=== PATIENT | female | born 1990 | race Caucasian/White ===

== ENCOUNTER 2022-11-08 09:23 | Outpatient (CLI) | payer OTHER, SELFPAY | END 2022-11-08 09:24 | disposition home or self-care (01) | PROVIDERS: Visit Provider Advanced Practice Midwife | DX: E06.3 Autoimmune thyroiditis (principal) | CPT/HCPCS: 84439; 84443 ==

== ENCOUNTER 2022-12-10 08:06 | Outpatient (CLI) | payer OTHER, SELFPAY ==
--- NOTE | 2022-12-10 08:15 | CRLHL7_ITS ---
For Patients: As a result of the Century Cures Act, medical imaging exams and procedure reports are released immediately into your electronic medical record. You may view this report before your referring provider. If you have questions, please contact your health care provider. INDICATION: Evaluate anatomy. COMPARISON: none TECHNIQUE: Real time gan scale imaging of the fetus was performed as well as color Doppler analysis of the umbilical vessels. FINDINGS: Sonographic imaging demonstrates a single living intrauterine gestation. Fetus demonstrates a regular cardiac rate of 139 beats per minute. Fetus has a vertex position. The placenta lies posterior. On transvaginal imaging, the placental tip extends to the internal cervical os. Amniotic fluid volume appears normal. Single deepest vertical pocket: 5.0 cm. The cervix is closed and measures 3.7 cm in length. The composite ultrasound gestational age is calculated at 19 weeks 3 days with an estimated sonographic due date of 05/03/2023. The estimated weight is 276 grams which lies at the 36th %. The following biometric measurements were obtained: Biparietal diameter: 4.5 cm/19 weeks 4 days 64th% Head circumference: 16.0 cm/18 weeks 6 days 23rd% Abdominal circumference: 14.7 cm/20 weeks 0 days 69th% Femur length: 2.7 cm/18 weeks 1 day 10th% The HC/AC ratio measures: 1.09 range (1.08-1.26) On anatomic survey, there is a normal appearance of the cerebral ventricles, cavum septi pellucidi, cisterna magna and cerebellum. The nose, lips, and facial profile appear normal. The cervical, thoracic and lumbar spine are well visualized and appear normal. There is a normal four-chamber heart view and the left and right ventricular outflow tracts appear normal. The diaphragm and stomach appear normal. The kidneys and bladder also appear normal. Trace bilateral pelviectasis noted measuring 2 millimeters considered normal. There is a normal three-vessel cord. Heterogeneous echotexture noted within the placenta adjacent to the cord insertion. The four extremities appear normal. IMPRESSION: Concordant of clinical and sonographic dating. No intrinsic abnormalities noted on anatomic survey. The edge of the posterior placenta extends to the internal cervical os and should be followed up in the 3rd trimester. Central placental cord insertion. Heterogeneous echotexture within the placenta adjacent to the cord of doubtful significance. This could be followed in the 3rd trimester. Dictated by Barrington Joyce MD @ 12/10/2022 9:31:58 AM (Electronically Signed)
== END 2022-12-10 08:07 | disposition home or self-care (01) ==
LOC: US 08:07
PROVIDERS: Visit Provider Advanced Practice Midwife
DX: Z34.92 Encounter for supervision of normal pregnancy, unspecified, second trimester (principal); E06.3 Autoimmune thyroiditis; Z3A.19 19 weeks gestation of pregnancy
CPT/HCPCS: 76805; 76817; 84439; 84443

== ENCOUNTER 2022-12-10 09:34 | Outpatient (CLI) | payer OTHER, SELFPAY | END 2022-12-10 09:35 | disposition home or self-care (01) | PROVIDERS: Visit Provider Advanced Practice Midwife | DX: E06.3 Autoimmune thyroiditis (principal) | CPT/HCPCS: 84439; 84443; 84481; 86376; 86800 ==

== ENCOUNTER 2023-02-06 09:33 | Outpatient (CLI) | payer OTHER, SELFPAY | END 2023-02-06 09:34 | disposition home or self-care (01) | PROVIDERS: Visit Provider Advanced Practice Midwife | DX: E06.3 Autoimmune thyroiditis (principal); O44.40 Low lying placenta NOS or without hemorrhage, unspecified trimester | CPT/HCPCS: 84439; 84443; 84481; 86592 ==

== ENCOUNTER 2023-03-13 08:10 | Outpatient (CLI) | payer OTHER, SELFPAY ==
--- NOTE | 2023-03-13 08:15 | CRLHL7_ITS ---
For Patients: As a result of the Century Cures Act, medical imaging exams and procedure reports are released immediately into your electronic medical record. You may view this report before your referring provider. If you have questions, please contact your health care provider. INDICATION: CHECK LOW LYING PLACENTA AND CORD INSERTION COMPARISON: 12/10/2022 TECHNIQUE: Real time gan scale imaging of the fetus was performed. FINDINGS: Sonographic imaging demonstrates a single living intrauterine gestation. Fetus demonstrates a regular cardiac rate of 134 beats per minute. Fetus has a vertex position. The placenta lies posteriorly without evidence of placenta previa. The edges of the placenta is located 6.5 cm from the internal cervical os. Amniotic fluid volume appears normal and there is a single deepest vertical pocket: 6.0 cm. The estimated weight is 2014gm which lies at the 41st %. On the prior OB ultrasound exam dated 12/10/2022 the estimated weight was at the 36th%. BPD 57th percentile. HC 29th percentile. AC 68th percentile. FL 11th percentile. The HC/AC ratio measures 1.03 range (0.96-1.12). IMPRESSION: Sonographic gestational age 32 weeks 5 days and sonographic due date 05/03/2023. Good correlation with dates. Normal interval growth. Posterior placenta. No previa. Edge of the placenta 6.5 cm from the internal cervical os. Normal placental cord insertion. Dictated by Barrington Joyce MD @ 03/13/2023 10:02:17 AM (Electronically Signed)
== END 2023-03-13 08:11 | disposition home or self-care (01) ==
LOC: US 08:10
PROVIDERS: Visit Provider Advanced Practice Midwife
DX: O44.43 Low lying placenta NOS or without hemorrhage, third trimester (principal); Z3A.32 32 weeks gestation of pregnancy
CPT/HCPCS: 76816

== ENCOUNTER 2023-03-27 09:23 | Outpatient (CLI) | payer OTHER, SELFPAY | END 2023-03-27 09:24 | disposition home or self-care (01) | PROVIDERS: Visit Provider Advanced Practice Midwife | DX: Z34.93 Encounter for supervision of normal pregnancy, unspecified, third trimester (principal); Z3A.34 34 weeks gestation of pregnancy; E06.3 Autoimmune thyroiditis | CPT/HCPCS: 84439; 84443; 84481 ==

== ENCOUNTER 2023-04-10 09:09 | Outpatient (CLI) | payer OTHER, SELFPAY ==
[2023-04-11 12:16] LABS: Strep B DNA Probe Negative (Negative); Strep B Susceptibility Needed? No
== END 2023-04-10 09:10 | disposition home or self-care (01) ==
PROVIDERS: Visit Provider Advanced Practice Midwife
DX: Z34.93 Encounter for supervision of normal pregnancy, unspecified, third trimester (principal)
CPT/HCPCS: 87081; 87653

== ENCOUNTER 2023-05-10 13:04 | Outpatient (CLI) | payer OTHER, SELFPAY ==
--- NOTE | 2023-05-10 13:00 | CRLHL7_ITS ---
For Patients: As a result of the Century Cures Act, medical imaging exams and procedure reports are released immediately into your electronic medical record. You may view this report before your referring provider. If you have questions, please contact your health care provider. INDICATION: POST DATES, BPP COMPARISON: 03/13/2023 TECHNIQUE: Real time gan scale imaging of the fetus was performed. Without non-stress testing. FINDINGS: Sonographic imaging demonstrates a single living intrauterine gestation. Fetus demonstrates a regular cardiac rate of 141 beats per minute. Fetus has a vertex position. The amniotic fluid volume appears normal and there is a single deepest pocket measurement of 3.9 cm. The fetus was active and demonstrated normal breathing movements. There was normal flexion and extension of the trunk and extremities. IMPRESSION: Normal biophysical profile score of 8 out of 8. Dictated by Barrington Joyce MD @ 05/10/2023 2:41:34 PM (Electronically Signed)
== END 2023-05-10 13:05 | disposition home or self-care (01) ==
LOC: US 13:04
PROVIDERS: Visit Provider Advanced Practice Midwife
DX: O48.0 Post-term pregnancy (principal)
CPT/HCPCS: 76819

== ENCOUNTER 2023-05-18 04:49 | Inpatient (IN) | payer OTHER, SELFPAY ==
[2023-05-18] VITALS (14 sets, daily range): BP systolic 105–140; BP diastolic 61–82; PULSE 82–105; RESP 16–20; TEMP 36.4–36.6; BMI 23.6
--- NOTE | 2023-05-18 06:25 | P.LDBA_ITS ---
Subjective History of Present Illness Date Seen: 05/18/23 Narrative: Laney is being admitted to Labor and Delivery for labor contractions. She is a 33 year old at 42.0 weeks gestation. Her full history and physical was dictated by Jewel Mckeon CNM on 04/17/23. Please see this for details. She was seen in clinic yesterday and had a membrane sweep at that time she was 3cm, 50% and -1. Since that time she has had bloody show and contractions have slowly increased in intensity. Specific Issues/Plans Partner: Ko H&P 04/17/23 by Jewel Mckeon CNM 1. Tino -Has previously treated with functional medicine and diet changes -TSH elevated at NOB, not treated by previous clinic -TSH repeated at 14.5 weeks, 4.5. (Normal T4) Script sent for 50 mcg of levothyroxine -Subclinical hypothyroid in . Declines to take levothyroxine. She would like monthly TSH/reflex T4 to continue to monitor levels. -12/10: TSH 4.7, T4 0.98, T3 normal, Antibodies elevated. She declines treatment at this time. -Repeat TSH/T4/T3 at 28 weeks: TSH 2.65, T4 0.94, T3 2.8 -Repeat TSH/T4/T3 at 34 weeks: TSH 2.19, T4 1.07, T3 Plan Repeat TSH levels at 6 weeks 2. Previous hx depression -treated w/ sertraline and therapy, situational when dad -Father by suicide, possible reaction to psych meds 3. Genetic Hx: -sister has Gitelman syndrome, Epilepsy -Brother has angelman's syndrome, epilepsy -declined genetic screening 4. Low lying placenta, with placenta at internal os. Resolved. Recommend pelvic rest Follow-up US at 28-32 weeks, planning for 32 weeks. 6.5cm at 32 weeks. 5. Vascularity and heterogenous are at site of cord insertion Recommended follow-up in 3rd trimester- normal cord insertion noted on 3rd tri US 6. Low platelets 121 on 02/06 CBC: plts 159 on 03/27 Records from [facility]: 10/10/22 labs: O+, antibody negative Hgb 12.4 platelets 148 rubella immune RPR neg Hep B neg HIV neg Urine culture - neg for infection Hep C neg TSH 3.39 Varicella immune Care initiated at 10.4 weeks. BRYANT 05/04/23 based on LMP, c/w 1st trimester u/s. Viability u/s 09/24/22, 8.0 weeks, bryant 05/06/23 Covid: declines Flu: declines Tdap: declines OB - Problem Based A/P Additional Plan (1) Post-dates : Status: Acute (2) Pain during labor: Status: Acute Plan Assessment:?? at 42.0 weeks gestation?? GBS negative? Patient is coping well with challenges of labor.?? Labor type: Spontaneous, Active labor? Category 1 FHR pattern.? complicated by: Tino's not medicated by pt choice, TSH levels stable family hx of genetic disorders, no genetic testing done this Previous hx of depression, situational Low platelets in , resolved with last lab report Plan:?? * ?Admit to L & D? * IV access: Not needed at this time * Monitoring per policy: intermittent? * Candidate for analgesia of choice.? Planning water therapy for pain management * Desires waterbirth.? Consent signed and Hep C negative * Expectant management at this time ? * Patient encouraged to reposition and ambulate to promote physiologic labor and . * Anticipate ? Delivery/Labor/Induction Plan Plan: expectant management OB Exam Physical Exam Vital signs: Pulse BP 82 118/79 05/18/23 05:08 05/18/23 05:08 Narrative: Vitals Reviewed Constitutional:? Alert and oriented x3 HEENT:? Normocephalic, atraumatic Neck:? Supple Lungs:? Clear to auscultation bilaterally Heart:? Regular rate and rhythm, no murmur, rub or gallop Abdomen:? Soft, nontender, and gravid. Vertex by Lasha's, confirmed with cervical exam by RN. Extremities:? No edema or erythema Cervix: 6 cm/70%/0 station/vertex NST: 120 bpm/moderate variability/+accelerations/-decelerations/q 3-4 min contr actions Detailed Labor and Delivery Exam Patient Gravid: Yes
[2023-05-18] MEDS: OXYTOCIN 10 UNIT/ML INJ IM (10:45)
[2023-05-18] MEDS: miSOPROStoL 800 MCG/4 TABLET PR (10:47)
[2023-05-18] MEDS: LIDOCAINE 1 % PF 30 ML INJECTION (10:47)
--- NOTE | 2023-05-18 11:31 | W.PM.VAGDE_ITS ---
OB Procedure Vag Delivery Mother Details Mother Details: The patient is a 33 year-old, 1, now Para 1, admitted on 05/18/23 at Days gestation. : 1 Para: 1 Weeks Gestation: 42.0 Admission Date: 05/18/23 Additional Details Amniotic Membrane Status: SROM Amniotic Membrane Rupture Date: 05/18/23 Amniotic Membrane Rupture Time: 09:52 Amniotic Membrane Fluid Description: Clear Analgesia/Anesthesia Type: Local (For repair only) Waterbirth: Yes Pitcoin: No (PP only for brisk bleeding) Intrapartal Events: None Labor Onset: 03:45 Complete: 08:50 (Assumed w/ pushing) Pushin:50 Heart: heart tones during second stage: baseline WNL. Audible decelerations during contraction noted w/ start of , good return to baseline after. Monitored at end of multiple contractions and this resolved as the head descended and turned. Delivery Details Delivery Date: 05/18/23 Delivery Time: 10:29 Route of delivery: Gender: Male Viability: Alive; Heart Rate Present Position at Delivery: OA Delivery Details: Laney was scheduled for an IOL this morning for dates. She arrived early this morning in labor and was 6 cm on admit. She did have a membrane sweep in the office yesterday. Ctx noticibly more intense after admit. Increased pressure and urge to push noted. She was assumed to be complete when spontaneous pushing was noted. She pushed on her right side and in semi hernández position in the tub. ? Spontaneous vaginal delivery at 1029 of?a viable?male infant in the tub.??Delivered in vertex OA position.??Shoulders delivered easily.? Spontaneous cry noted.??Infant placed on maternal abdomen.??Increased bleeding noted in the tub, cord no longer pulsing. Assumed to be separation of placenta, cord?was clamped and cut after a 5+ minute delay.??Mouth was bulb suctioned.? Shoulder dystocia: no? Nuchal cord: no? Meconium stained?fluid: no? Water : yes? ? ? 8 at 1 minute and 9 at 5 minutes.? ? Laney assisted from the tub, and while drying her off a moderate size clot was noted. Assisted to bed, and placenta delivered spontaneously and?complete?at 1042 with a?3 vessel?cord.?? Increased bleeding noted, and initially controlled with fundal massage, where t he fundus was noted to be boggy. Increased bleeding continued, and pitocin and then cytotec given for it. Continued oozing noted during repair, but resolved again with fundal massage. Prior to leaving the room, increased oozing was noted again, and decision made to help Laney empty her bladder. At this time, increased oozing has resolved. Will consider TXA and Methergine if it returns. ? Mother and infant were stable after delivery.? ? Lacerations:? 2nd degree with right labial extension, repaired with 3- 0?vicryl.??Bilateral periurethrals laceration, not bleeding, not repaired. The 2 line up, and we did review the limited possibility they could fuse. Not likely as each laceration folds into the labia. Reviewed option to repair one, and Laney declined. ? ? Blood loss: 350 in tub, 75 in bag = 425 Blood loss measurement type: QBL? EBL? ? Sponge,?lap?and needles counts are correct.? Mother and were stable after delivery.? 1 Minute Interval Total Score: 8 5 Minute Interval Total Score: 9 Additional Details Shoulder Dystocia: No Placenta Delivery Time: 10:42 Placental Delivery Description: Spontaneous Delivery repair: Vicryl Procedure Done: Global Blood Loss: 425 Blood Loss Measurement Type: EBL Bakri Used: No Sponge/Need Count Correct: Yes Cord Vessel Description: 3 Vessels Event Summary Status: Mother and were stable after delivery.
[2023-05-18] MEDS: IBUPROFEN 600 MG TABLET PO ×2 (13:16→20:12)
[2023-05-18] MEDS: ACETAMINOPHEN 500 MG TABLET 1000 MG PO ×2 (16:00→21:45)
[2023-05-18] MEDS: LANOLIN CREAM 1 APPLIC TOPICAL (20:10)
[2023-05-19 00:34] VITALS: BP 109/70; RESP 12; TEMP 36.6
[2023-05-19] MEDS: IBUPROFEN 600 MG TABLET PO ×2 (02:00→08:30)
[2023-05-19] MEDS: ACETAMINOPHEN 500 MG TABLET 1000 MG PO ×2 (04:49→14:43)
[2023-05-19 04:50] VITALS: BP 125/71; RESP 12; TEMP 36.4
[2023-05-19] MEDS: DOCUSATE SODIUM 100 MG CAPSULE PO (08:30)
[2023-05-19 08:40] VITALS: BP 104/70; RESP 16; TEMP 36.4; O2SAT 98
--- NOTE | 2023-05-19 09:37 | P.DS_ITS ---
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 ?Normal respiratory effort. ?Clear to auscultation HEART: ?regular rate and rhythm ABDOMEN: ?soft, non-tender. Uterine fundus is firm, 2 below Umbilicus, Midline and is appropriate for the stage of recovery. ?Bowel sounds present. PERINEUM: ?mild edema of the perineum, there is a 2nd degree laceration that is healing well. EXTREMITIES: ?normal and no edema Const: Vital Signs, click to edit/add: Vital Signs - 24 hr 05/18/23 10:45 05/18/23 10:58 05/18/23 11:12 Temperature Pulse Rate 94 94 87 Respiratory Rate Blood Pressure 140/63 H 125/61 126/63 Blood Pressure [Ri ght Arm] Pulse Oximetry Oxygen Delivery [facility] 05/18/23 11:33 05/18/23 11:43 05/18/23 12:17 Temperature Pulse Rate 100 97 103 H Respiratory Rate Blood Pressure 126/69 106/62 130/77 Blood Pressure [Ri ght Arm] Pulse Oximetry Oxygen Delivery [facility] 05/18/23 12:27 05/18/23 12:43 05/18/23 12:57 Temperature Pulse Rate 105 H 99 100 Respiratory Rate Blood Pressure 131/82 114/71 113/80 Blood Pressure [Ri ght Arm] Pulse Oximetry Oxygen Delivery [facility] 05/18/23 16:10 05/18/23 20:52 05/19/23 00:34 Temperature 97.6 F 97.6 F 97.8 F Pulse Rate Respiratory Rate 16 12 Blood Pressure Blood Pressure [Ri ght Arm] 114/81 111/67 109/70 Pulse Oximetry Oxygen Delivery [facility] 05/19/23 04:50 05/19/23 08:40 Temperature 97.6 F 97.6 F Pulse Rate Respiratory Rate 12 16 Blood Pressure Blood Pressure [Ri ght Arm] 125/71 104/70 Pulse Oximetry 98 Oxygen Delivery [facility] Room Air Documenting provider has reviewed patient's vital signs: yes OB - DS: Summary Hospital Course Hospital Course: Laney is a 33 y.o. G 1 P 1 who was admitted to L & D for labor. ?She had an uncomplicated NVD The patient feels well. ?The pain is well controlled with current medications. ?She has no new complaints. ?She is breast feeding and reports things are overall going well. Baby has been a little sleepy and not latching deep at times.? the patient has done well.? Vitals have been stable.? She has remained afebrile.? Has a good appetite, is tolerating a general diet. ?She is voiding without difficulty.? She is passing gas and has not had a bowel movement.? She is ambulating and denies any dizziness.? Has Small amount of rubra lochia. She is planning NFP for prevention. Problems: none plan: Discharge home with baby. Follow up in 2 weeks and 6 weeks. , may follow up with if needed Peripartum Data delivery method: Vaginal Laceration description: Perineal - 2nd Degree complications: none Gender: Male Infant Discharge Plan: Home Status at Discharge Functional status at discharge: independent ambulation Overall status at discharge: patient is progressing back to baseline Time Spent with Patient Time attestation: Total time spent providing and/or coordinating discharge services: Time spent: Less than 30 minutes Discharge Plan Discharge Disposition: Home, Self-Care Date of Admission: 05/18/23 04:49 Attending Provider on Discharge: Kell Lala Primary Care Provider: Leah Pisano Condition: Stable Anticipated Discharge Date/Time: 05/19/23 14:00 Discharge Medications: New docusate sodium 100 mg Capsule 100 mg PO BID PRNQty: 100 0RF Rx Instructions: Take 1 tab 1-2 times a day as needed for constipation ibuprofen 600 mg Tablet 600 mg PO Q6H PRNQty: 60 0RF Continued omega-3 fatty acids 1,000 mg capsule 1,000 mg PO QDAY magnesium 250 mg tablet 250 mg PO QDAY Digestive Advantage Advanced 10 billion cell capsule 1 cell PO DAILY Multi-DHA(with vit K) 27 mg iron-800 mcg-260 mg capsule 1 cap PO DAILY (DME) breast pump Device See Rx Instructions .Route Qty: 1 0RF Rx Instructions: As directed Discharge Orders: Discharge Order (Routine); Ordered 05/19/23 Ordered By: Kell Lala Patient Education: OB Over the Counter Medication Information, OB Vaginal/Breast Feeding Additional Instructions: Follow up in 2 weeks and 6 weeks Activity Level: Activity as Tolerated Discharge Diet: Regular Follow Up Appointments: Leah Pisano RN [Primary Care Provider] - Forms: MyHealth Info Instructions
[2023-05-19] MEDS: BENZOCAINE/MENTHOL SPRAY 85 GM AEROSOL 1 APPLIC TOPICAL (10:02)
[2023-05-19 14:00] VITALS: BP 112/60; RESP 16; TEMP 36.4; O2SAT 98
== END 2023-05-19 16:16 | disposition home or self-care (01) | DRG 807 ==
PROVIDERS: Admitting Provider Advanced Practice Midwife; Visit Provider Advanced Practice Midwife
DX: O48.0 Post-term pregnancy (principal); Z37.0 Single live birth; O70.1 Second degree perineal laceration during delivery; E06.3 Autoimmune thyroiditis; Z3A.42 42 weeks gestation of pregnancy
CPT/HCPCS: G0463; A9270; J2001; J2590

== ENCOUNTER 2024-05-08 10:24 | Outpatient (CLI) | payer OTHER, SELFPAY ==
--- OUTSIDE RECORDS SUMMARY | 2024-05-07 16:26 | XMS_ITS | Encounter Summary ---
Author Organization [facility] Address [address] [place] [id number] Care Team Providers Care Towing Pilot Name Role Phone Leah Barnard MD Primary Care Provider [phone] Maxim Siu MD Unavailable [phone] Encounter Details Date Type Department Care Team (Late st Contact Info) Description 08/21/2023 [facility] Medical Advice [address] [id number] Maxim Siu MD [address] [place] [id number] Social History Tobacco Use Types Packs/Day Years Used Date Smoking Tobacco: Never Smokeless Tobacco: Never Alcohol Use Standard Drinks/Week Comments Yes 0 (1 standard drink = 0.6 oz pur e alcohol) few a month Social Connection and Isolat ion Panel [NHANES] Answer Date Recorded In a typical week, how many times do you talk on the phone with family, friends, or neighbors? Once a week 01/08/2022 How often do you get togethe r with friends or relatives? Three times a week 01/08/2022 How often do you attend [facility] or mosque services? More than 4 times per year 01/08/2022 Do you belong to any clubs o r organizations such as scientologist groups, unions, fraternal or athletic groups, or school groups? Yes 01/08/2022 Attends Club or Organization Meetings Not on nii e 01/08/2022 Are you , , di vorced, , never , or living with a partner? Living with partner 01/08/2022 AUDIT-C Answer Date Recorded Q1: How often do you have a drink containing alc ohol? 2-4 times a month 01/08/2022 Q2: How many drinks containi ng alcohol do you have on a typical day when you are drinking? 1 or 2 01/08/2022 Q3: How often do you have si x or more drinks on one occasion? Never 01/08/2022 Overall Financial Resource Strain (CARDIA) Answe r Date Recorded How hard is it for you to pa y for the very basics like food, housing, medical care, and heating? Not very hard 01/08/2022 PHQ-2 Answer Date Recorded PHQ-2 Score 6 [facility]20[facility] - Occupational Stress Questionnaire Answer Date Recorded Do you feel stress - tense, restless, nervous, or anxious, or unable to sleep at night because your mind is troubled all the time - these days? Not at all 01/08/2022 Exercise Vital Sign Answer Date Recorde d On average, how many days pe r week do you engage in moderate to strenuous exercise (like a brisk walk)? 3 days 01/08/2022 On average, how many minutes do you engage in exercise at this level? 30 min 01/08/2022 Hunger Vital Sign Answer Date Recorded Within the past 12 months, y ou worried that your food would run out before you got the money to buy more. Never true 01/09/20 22 Within the past 12 months, t he food you bought just didn't last and you didn't have money to get more. Never true 01/08/2022 PRAPARE - Transportation Answer Date Re corded In the past 12 months, has l ack of transportation kept you from medical appointments or from getting medications? No 09/2021 In the past 12 months, has l ack of transportation kept you from meetings, work, or from getting things needed for daily living? No 01/08/2022 Housing Stability Vital Sign Answer Nilo e Recorded In the last 12 months, was t here a time when you were not able to pay the mortgage or rent on time? No 01/08/2022 In the last 12 months, how many places have you lived? 1 01/08/2022 In the last 12 months, was t here a time when you did not have a steady place to sleep or slept in a fci (including now)? No 01/08/2022 Adolescent Education Answer Date Record ed Getting School Help Needed Not on file 02/17 Interpersonal Safety Answer Date Record ed Do you feel physically and e motionally safe where you currently live? Yes 08/19/2023 Within the past 12 months, h ave you been hit, slapped, kicked or otherwise physically hurt by someone? No 08/19/2023 Within the past 12 months, h ave you been humiliated or emotionally abused in other ways by your partner or ex-partner? No 08/19/2023 Comments No Sex and Gender Information Value Date Recorded Sex Assigned at Female 04/11/2019 5:00 PM [employer] Legal Sex Female 3:16 AM [employer] Gender Identity Female 04/11/2019 5:00 PM [employer] Sexual Orientation Straight 04/11/2019 5: 00 PM [employer] documented as of this encounter Miscellaneous Notes * Telephone Encounter - Maxim Siu MD - 08/21/2023 7:29 PM CDT It is not recommended or safe to abruptly discontinue metoprolol. I would recommend weaning off in the following schedule Start taking the metoprolol 25 mg 1 pill twice daily, do that for 5 days Then take 25 mg once a day for 5 days, after that then you can completely discontinue, certainly continue to monitor heart rate. * Telephone Encounter - Shaylee Dunn RN - 08/21/2023 5:13 PM CDT Please see my chart messages and advise on Metoprolol. documented in this encounter Plan of Treatment Not on file documented as of this encounter Visit Diagnoses Not on filedocumented in this encounter Additional Health Concerns Assessment Noted Time PHQ-9 Depression Total Score: 22 024 9:51 AM CDT documented as of this encounter Care Teams Towing Pilot Relationship Specialty Start Date End Date Leah Barnard MD [address] [facility] [place] [id number] PCP - General Internal Medicine 05/05/15 Maxim Siu MD [address] [place] [address] Assigned PCP 07/27/23 documented as of this encounter
--- OUTSIDE RECORDS SUMMARY | 2024-05-07 16:26 | XMS_ITS | Encounter Summary ---
Author Organization [facility] Address [address] [place] [address] Care Team Providers Care Laborer Gold Leaf Name Role Phone Leah Barnard MD Primary Care Provider [phone] Leah Barnard MD Unavailable [phone] Shannon Saunders Unavailable Unavailable Karis Kc MD Unavailable [phone] Maxim Siu MD Unavailable [phone] Encounter Details Date Type Department Care Team (Late st Contact Info) Description 12/29/2020 [facility] Medical Advice [address] [place] [phone] Karis Kc MD [facility] [place] [address] Social History Tobacco Use Types Packs/Day Years Used Date Smoking Tobacco: Never Smokeless Tobacco: Never Alcohol Use Standard Drinks/Week Comments Yes 0 (1 standard drink = 0.6 oz pur e alcohol) once per week, couple drinks PHQ-2 Answer Date Recorded PHQ-2 Score 2 11/28/2020 Comments No Sex and Gender Information Value Date Recorded Sex Assigned at Female 04/11/2019 5:00 PM LICENSED MARINE ENGINEER Legal Sex Female 3:16 AM LICENSED MARINE ENGINEER Gender Identity Female 04/11/2019 5:00 PM LICENSED MARINE ENGINEER Sexual Orientation Straight 04/11/2019 5: 00 PM LICENSED MARINE ENGINEER documented as of this encounter Plan of Treatment Not on file documented as of this encounter Visit Diagnoses Not on filedocumented in this encounter Additional Health Concerns Assessment Noted Time PHQ-9 Depression Total Score: 18 08/19/ 021 7:02 AM CDT documented as of this encounter Care Teams Laborer Gold Leaf Relationship Specialty [place] [address] [place] [address] [place] CHAVIS [address] PCP - General Internal Medicine 05/05/15 [place] [address] [place] [address] [place] [address] Assigned PCP 06/10/16 07/26/23 Shannon Saunders Personal Advocate & Liaison (PAL) 11/23/20 01/08/22 Karis Kc MD [address] [place] [address] Assigned OBGYN Provider 12/04/20 3 Maxim Siu MD [address] [place] [address] Assigned PCP 07/27/23 documented as of this encounter
--- OUTSIDE RECORDS SUMMARY | 2024-05-07 16:26 | XMS_ITS | Referral Summary ---
Author Organization [facility] Address [address] [place] [address] Care Team Providers Care Psych Specialist Name Role Phone Leah Barnard MD Primary Care Provider [phone] Maxim Siu MD Unavailable [phone] Allergies Active Allergy Reactions Criticality Noted Date Comments Amoxicillin-Pot Clavulanate Nausea High 05/05/20 15 Bad reaction Amoxicillin-Pot Clavulanate Nausea High 05/05/20 15 Bad reaction Azithromycin Nausea High 05/05/2015 Bad reaction Medications Probiotic Product (PROBIOTIC DAILY PO) Active Magnesium Oxide 250 MG TABS Active multivitamin w/minerals (MULTI-VITAMIN) tablet Take 1 tablet by mouth daily Active Cholecalciferol (VITAMIN D-3) 125 MCG (5000 UT) TABS Active [place]-3 Fatty Acids (FISH OIL PO) Active nystatin (MYCOSTATIN) 116450 UNIT/ML suspensionIndic ations:Oral thrush Take 5 mLs (500,000 Units) by mouth 4 times daily 473 mL 1 09/12/2023 Active clotrimazole (MYCELEX) 10 MG lozengeIndicati ons:Oral thrush Place 1 lozenge (10 mg) inside cheek 5 times daily 70 lozenge 1 09/27/2023 Active Active Problems Problem Noted Date Diagnosed Date Kyleena Inserted : Due for removal 11/28/2511/28 Overview (11/28/2020): Lot # [id number] 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 09/02/2017 Dysmenorrhea 05/05/2015 Perennial allergic rhinitis 05/05/2015 Amblyopia of eye, unspecified laterality 015 Resolved Problems Problem Noted Date Diagnosed Date Resolved Date ParaGard IUD inserted : Due for removal 04/202904/14/2019 11/28/2020 Overview (04/14/2019): Lot # [id number] Rheumatoid arthritis, involv ing unspecified site, unspecified rheumatoid factor presence 09/08/2018 01/10/2022 Overview (02/08/2020): IMO Regulatory Load FEB 2020 Immunizations Name Administration Dates Next Due DTAP (<7y) 02/08/1997, 4,1992,1992,1992 Flu, Unspecified 05/28/2016 HEPA 03/03/2009,12/16/2006 HEPATITIS A (PEDS 12M-18Y) 03/03/2009,12/16/2006 HIB (PRP-T) 06/02/1993, 3,1992,1991 HPV 05/28/2016 HPV9 09/08/2018,09/02/2017 HepB 03/03/2003,02/01/2001,12/31/2000 Hepatitis B, Peds 03/03/2003,02/01/2001,01/01/20 01 Influenza (IIV3) PF 03/18/2009, 9,03/16/2006,2003,03/03/2003,03/14/2002 Influenza (prior to 2023) 04/13/2013 Influenza Intranasal Vaccine 03/03/2009 Influenza Vaccine >6 months,quad, PF 05/28/2016 MMR 02/08/1997,06/02/1993 Meningococcal (Menomune ) 12/02/2012,12/16/2006 Meningococcal ACWY (Menactra ) 12/02/2012 Poliovirus, inactivated (IPV) 02/08/1997 ,06/02/1993,1992,1991 TD,PF 7+ (Tenivac) 03/03/2003 TDAP (Adacel,Boostrix) 04/13/2013 TDAP Vaccine (Adacel) 05/05/2015 Td (Adult), Adsorbed 03/03/2003 Typhoid IM 04/13/2013 Varicella 02/08/1997 Social History Tobacco Use Types Packs/Day Years Used Date Smoking Tobacco: Never Passive Smoke Exposure: Never Smokeless Tobacco: Never Tobacco Cessation:Counseling Given: Not Answered Alcohol Use Standard Drinks/Week Comments Yes 0 [...] often do you attend [facility] or caodaism services? More than 4 times per year 01/08/2022 Do you belong to any clubs o r organizations such as samaritan groups, unions, fraternal or athletic groups, or [...] 01/08/2022 PHQ-2 Answer Date Recorded PHQ-2 Score 0 09/12/2023 [facility] - Occupational Stress Questionnaire Answer Date Recorded [...] place to sleep or slept in a halfway (including now)? No 01/08/2022 Adolescent Education Answer Date Record ed Getting School Help Needed Not on file 02/17 Interpersonal Safety Answer Date Record ed Do you feel physically and e motionally safe where you currently live? Yes 09/12/2023 Within the past 12 months, h ave you been hit, slapped, kicked or otherwise physically hurt by someone? No 09/12/2023 Within the past 12 months, h ave you been humiliated or emotionally abused in other ways by your partner or ex-partner? No 09/12/2023 Comments No Sex and Gender Information Value Date Recorded Sex Assigned at Female 04/11/2019 5:00 PM VBA DEVELOPER Legal Sex Female 3:16 AM VBA DEVELOPER Gender Identity Female 04/11/2019 5:00 PM VBA DEVELOPER Sexual Orientation Straight 04/11/2019 5: 00 PM VBA DEVELOPER Last Filed Vital Signs Vital Sign Reading Time Taken Comments Blood Pressure 100/64 09/12/2023 10:29 AM CDT Pulse 72 09/12/2023 10:29 AM CDT Temperature 36.2 C (97.1 F) 09/12/2023 10:29 AM CDT Respiratory Rate 16 09/12/2023 10:29 AM CDT Oxygen Saturation 97% 09/12/2023 10:29 AM CDT Inhaled Oxygen Concentration - - Weight 61 kg (134 lb 6.4 oz) 09/12/2023 10:29 AM CDT Height 175.3 cm (5' 9) 09/12/2023 10:29 AM CDT Body Mass Index 19.85 09/12/2023 10:29 AM CDT Plan of Treatment Not on file Procedures Procedure Name Priority Date/Time Associated Diagnosis Comments TSH Routine 09/12/2023 11:21 AM CDT 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 GYNECOLOGIC CYTOLOGY Routine 01/10/2022 7:35 AM CDT Routine history and physical examination of adult Cervical cancer screening HIV ANTIGEN ANTIBODY COMBO Routine 09/02/2017 8:43 AM CDT Routine general medical examination at a health care facility from Last 3 Months or Most Recently Relevant to Health Maintenance Results * (ABNORMAL) TSH (09/12/2023 11:21 AM CDT) TSH 8.68(H) 0.30 - 4.20 uIU/mL 09/12/2023 8:52 PM CDT [facility] Blood BLOOD SPECIMEN / Unknown Venipuncture / Unknown 09/12/2023 11:21 AM CDT 09/12/2023 11:21 AM CDT us Maxim Siu MD LAB - BLOOD ORDERABLES Final Result [facility] [place] [facility] [address] [facility] [address] [facility], [address] [place] [address], [facility] * Pap screen reflex to HPV if ASCUS - recommend age 25 - 29 (01/10/2022 7:35 AM CDT) Interpretation Negative for Intraepithelial Lesion or Malignancy (NILM) 01/12/2022 9:13 AM CDT [facility] Comment Papanicolaou Test Limitations: Cervical cytology is a screening test with limited sensitivity, and regular screening is critical for cancer prevention. Pap tests are primarily effective for the diagnosis/prevent ion of squamous cell carcinoma, not adenocarcinoma or other cancers. 01/12/2022 9:13 AM CDT [facility] Specimen Adequacy Satisfactory for evaluation, endocervical/conn sformation zone component present 01/12/2022 9:13 AM CDT [facility] Clinical Information none 01/12/2022 9:13 AM CDT [facility] Reflex Testing Yes if ASCUS 01/13/20 9:13 AM CDT [facility] Previous Abnormal? No 01/12/2022 9:13 AM CDT [facility] Performing Labs The technical component of this testing was completed at [facility] 01/12/2022 9:13 AM CDT [facility] Brushing CERVIX UTERI STRUCTURE / Unknown Non-blood Collection / Unknown 01/10/2022 7:35 AM CDT 01/10/2022 8:15 AM CDT us Leah CARTER - JAY AP Final Res ult [facility] Special[facility] Lab [address] [facility], [address] [place] [address], [facility] [phone] * HIV Antigen Antibody Combo (09/02/2017 8:43 AM CDT) HIV Antigen Antibody Combo Nonreactive NR^Nonrea ctive 09/02/2017 7:12 PM CDT [facility] Comment:HIV-1 p24 Ag & HIV-1 /HIV-2 Ab Not Detected Blood specimen (specimen) 09/02/2017 8:43 AM CDT 09/02/2017 8:44 AM CDT us Leah Barnard MD LAB - BLOOD ORDERABLES Fi nal Result [facility] [address] [place] [address] from Last 3 Months or Most Recently Relevant to Health Maintenance [facility] Care Teams Psych Specialist Relationship Specialty Start Date End Date Leah Barnard MD [address] [facility] [place] [address] PCP - General Internal Medicine 05/05/15 Maxim Siu MD [address] [place] [address] Assigned PCP 07/27/23
--- OUTSIDE RECORDS SUMMARY | 2024-05-07 16:26 | XMS_ITS | Encounter Summary ---
Author Organization [facility] Address [address] [place] [address] Care Team Providers Care Security Sergeant Name Role Phone Leah Barnard MD Primary Care Provider [phone] Maxim Siu MD Unavailable [phone] Encounter Details Date Type Department Care Team (Late st Contact Info) Description 07/29/2023 [facility] [place] [address] [address] Maxim Siu MD [address] [place] [address] Social History Tobacco Use Types Packs/Day [...] week 01/08/2022 How often do you attend [facility] or jew services? More than 4 times per year 01/08/2022 Do you belong to any clubs o r organizations such as baptist groups, unions, fraternal or athletic groups, or [...] Answer Date Recorded PHQ-2 Score 6 07/23/2023 [facility] - Occupational Stress Questionnaire Answer Date Recorded [...] place to sleep or slept in a fpc (including now)? No 01/08/2022 Adolescent Education Answer Date Record ed Getting School Help Needed Not on file 02/17 Comments No Sex and Gender Information Value Date Recorded Sex Assigned at Female 04/11/2019 5:00 PM PHARMACY HELPER Legal Sex Female 3:16 AM PHARMACY HELPER Gender Identity Female 04/11/2019 5:00 PM PHARMACY HELPER Sexual Orientation Straight 04/11/2019 5: 00 PM PHARMACY HELPER documented as of this encounter Miscellaneous Notes * Telephone Encounter - Maxim Siu MD - 07/29/2023 1:19 PM CDT I did fax in more metoprolol * Telephone Encounter - Mone Hernandez RN - 07/29/2023 10:38 AM CDT Please see My Chart Message: Patient requesting Metoprolol. Taking (2) 25mg tablets twice daily. Last OV: 07/23/[address] Siu Medication is not active on Medication List. documented in this encounter Plan of Treatment Not on file documented as of this encounter Visit Diagnoses Not on filedocumented in this encounter Additional Health Concerns Assessment Noted Time PHQ-9 Depression Total Score: 22 024 9:51 AM CDT documented as of this encounter Care Teams Security Sergeant Relationship Specialty Start Date End Date Leah Barnard MD [address] [facility] [address] [place], [place] [address] PCP - General Internal Medicine 05/05/15 Maxim Siu MD [address] [place] [address] Assigned PCP 07/27/23 documented as of this encounter
--- OUTSIDE RECORDS SUMMARY | 2024-05-07 16:26 | XMS_ITS | Encounter Summary ---
Author Organization [facility] Address [address] [place] [address] Care Team Providers Care Family Resource Management Professor Name Role Phone Leah Barnard MD Primary Care Provider [phone] Leah Barnard MD Unavailable [phone] Shannon Saunders Unavailable Unavailable Karis Kc MD Unavailable [phone] Maxim Siu MD Unavailable [phone] Reason for Visit * Reason Onset Date Comments Outreach 10/03/2021 Encounter Details Date Type Department Care Team (Late st Contact Info) Description 10/03/2021 [facility] Medical Advice [address] [place] [phone] Shannon Saunders Outreach Social History Tobacco Use Types Packs/Day Years Used Date Smoking Tobacco: Never Smokeless Tobacco: Never Alcohol Use Standard Drinks/Week Comments Yes 0 (1 standard drink = 0.6 oz pur e alcohol) once per week, couple drinks PHQ-2 Answer Date Recorded PHQ-2 Score 2 11/28/2020 Comments No Sex and Gender Information Value Date Recorded Sex Assigned at Female 04/11/2019 5:00 PM PHYSICIAN PRACTICE COORDINATOR Legal Sex Female 3:16 AM PHYSICIAN PRACTICE COORDINATOR Gender Identity Female 04/11/2019 5:00 PM PHYSICIAN PRACTICE COORDINATOR Sexual Orientation Straight 04/11/2019 5: 00 PM PHYSICIAN PRACTICE COORDINATOR documented as of this encounter Plan of Treatment Not on file documented as of this encounter Visit Diagnoses Not on filedocumented in this encounter Additional Health Concerns Assessment Noted Time PHQ-9 Depression Total Score: 18 021 7:02 AM CDT documented as of this encounter Care Teams Family Resource Management Professor Relationship Specialty Start Date End Date Leah Barnard MD [address] [facility] [place] [address] PCP - General Internal Medicine 05/05/15 Leah Barnard MD [address] [facility] [place] [address] Assigned PCP 06/10/16 07/26/23 Shannon Saunders Personal Advocate & Liaison (PAL) 11/23/20 01/08/22 Karis Kc MD [address] [place] [address] Assigned OBGYN Provider 12/04/20 3 Maxim Siu MD [address] [place] [address] Assigned PCP 07/27/23 documented as of this encounter
--- OUTSIDE RECORDS SUMMARY | 2024-05-07 16:26 | XMS_ITS | Encounter Summary ---
Author Organization [facility] Address [address] [place] [address] Care Team Providers Care Print Production Coordinator Name Role Phone Leah Barnard MD Primary Care Provider [phone] Leah Barnard MD Unavailable [phone] Shannon Saunders Unavailable Unavailable Karis Kc MD Unavailable [phone] Maxim Siu MD Unavailable [phone] Encounter Details Date Type Department Care Team (Late st Contact Info) Description 01/11/2021 [facility] Medical Advice [address] [place] [phone] Karis Kc MD [place] [address] Social History Tobacco Use Types Packs/Day Years Used Date Smoking Tobacco: Never Smokeless Tobacco: Never Alcohol Use Standard Drinks/Week Comments Yes 0 (1 standard drink = 0.6 oz pur e alcohol) once per week, couple drinks PHQ-2 Answer Date Recorded PHQ-2 Score 2 11/28/2020 Comments No Sex and Gender Information Value Date Recorded Sex Assigned at Female 04/11/2019 5:00 PM BENCH WORKER HOLLOW HANDLE Legal Sex Female 3:16 AM BENCH WORKER HOLLOW HANDLE Gender Identity Female 04/11/2019 5:00 PM BENCH WORKER HOLLOW HANDLE Sexual Orientation Straight 04/11/2019 5: 00 PM BENCH WORKER HOLLOW HANDLE documented as of this encounter Miscellaneous Notes * Telephone Encounter - Neela Griggs RN - 01/12/2021 1:33 PM CDT Scheduled. Neela Griggs RN * Telephone Encounter - Karis Kc MD - 01/12/2021 12:41 PM CDT Ok to add on Saturday morning in [place]. Karis Kc MD * Telephone Encounter - Natali Ramirez RN - 01/12/2021 8:41 AM CDT Is it okay to add a quick IUD string trim on somewhere with you or I can add with someone else too. Asks for Saturday morning Natali Luna R.N. documented in this encounter Plan of Treatment Not on file documented as of this encounter Visit Diagnoses Not on filedocumented in this encounter Additional Health Concerns Assessment Noted Time PHQ-9 Depression Total Score: 18 021 7:02 AM CDT documented as of this encounter Care Teams Print Production Coordinator Relationship Specialty Start Date End Date Leah Barnard MD [address] [facility] [place]AV[place] [address] PCP - General Internal Medicine 05/05/15 Leah Barnard MD [address] [facility] [place] [address] Assigned PCP 06/10/16 07/26/23 Shannon Saunders Personal Advocate & Liaison (PAL) 11/23/20 01/08/22 Karis Kc MD [address] [place] [address] Assigned OBGYN Provider 12/04/20 3 Maxim Siu MD [address] [place] [address] Assigned PCP 07/27/23 documented as of this encounter
--- OUTSIDE RECORDS SUMMARY | 2024-05-07 16:26 | XMS_ITS | Encounter Summary ---
Author Organization [facility] Address [address] [place] [address] Care Team Providers Care Unionmelt Operator Name Role Phone Leah Barnard MD Primary Care Provider [phone] Maxim Siu MD Unavailable [phone] Encounter Details Date Type Department Care Team (Late st Contact Info) Description 08/03/2023 [facility] Medical Advice [address] [address] Maxim Siu MD [address] [place] [address] Social History Tobacco Use Types Packs/Day [...] week 01/08/2022 How often do you attend [facility] or confucianism services? More than 4 times per year 01/08/2022 Do you belong to any clubs o r organizations such as zoroastrian groups, unions, fraternal or athletic groups, or [...] Answer Date Recorded PHQ-2 Score 6 07/23/2023 [facility] - Occupational Stress Questionnaire Answer [...] place to sleep or slept in a half-way (including now)? No 01/08/2022 Adolescent Education Answer Date Record ed Getting School Help Needed Not on file 02/17 Comments No Sex and Gender Information Value Date Recorded Sex Assigned at Female 04/11/2019 5:00 PM PIZZA CHEF Legal Sex Female 3:16 AM PIZZA CHEF Gender Identity Female 04/11/2019 5:00 PM PIZZA CHEF Sexual Orientation Straight 04/11/2019 5: 00 PM PIZZA CHEF documented as of this encounter Miscellaneous Notes * Telephone Encounter - Maxim Siu MD - 08/06/2023 5:28 PM CDT A couple of things. Yes I think the fact that you are still hyperthyroid would explain why you are not sleeping well. This will improve with time, however in the meantime a couple of thoughts. If youare taking magnesium that is generally safe, if you are taking 1 tablet you could certainly double that to 2 that might help. There are prescription medications as well as melatonin though none of them have been given a greenlight completely in terms of breast-feeding though occasionally trazodone is used, let me know if by increasing the dose of magnesium is still having sleep issues. * Telephone Encounter - Jj Higgins RN - 08/05/2023 3:58 PM CDT Images from the original note were not included. See MyChart from Patient needing PCP reponse. NICOLE Gardner [facility] documented in this encounter Plan of Treatment Not on file documented as of this encounter Visit Diagnoses Not on filedocumented in this encounter Additional Health Concerns Assessment Noted Time PHQ-9 Depression Total Score: 22 024 9:51 AM CDT documented as of this encounter Care Teams Unionmelt Operator Relationship Specialty Start Date End Date Leah Barnard MD [address] [facility] [place] [address] PCP - General Internal Medicine 05/05/15 Maxim Siu MD [address] [place] [address] Assigned PCP 07/27/23 documented as of this encounter
--- OUTSIDE RECORDS SUMMARY | 2024-05-07 16:26 | XMS_ITS | Encounter Summary ---
Author Organization [facility] Address [address] [place] [address] Care Team Providers Care Field Artillery Radar Operator Name Role Phone Leah Barnard MD Primary Care Provider [phone] Maxim Siu MD Unavailable [phone] Encounter Details Date Type Department Care Team (Late st Contact Info) Description 09/09/2023 [facility] Medical Advice [address] [address] Teresa Chew Social History Tobacco Use Types Packs/Day Years [...] week 01/08/2022 How often do you attend [facility] or methodist services? More than 4 times per year [...] Answer Date Recorded PHQ-2 Score 0 09/12/2023 [facility]at ional Health - Occupational Stress [...] place to sleep or slept in a nursing home (including now)? No 01/08/2022 Adolescent Education Answer [...] Sex Assigned at Female 04/11/2019 5:00 PM TOLL COLLECTOR SUPERVISOR Legal Sex Female 3:16 AM TOLL COLLECTOR SUPERVISOR Gender Identity Female 04/11/2019 5:00 PM TOLL COLLECTOR SUPERVISOR Sexual Orientation Straight 04/11/2019 5: 00 PM TOLL COLLECTOR SUPERVISOR documented as of this encounter Plan of Treatment Not on file documented as of this encounter Visit Diagnoses Not on filedocumented in this encounter Additional Health Concerns Assessment Noted Time PHQ-9 Depression Total Score: 22 024 9:51 AM CDT documented as of this encounter Care Teams Field Artillery Radar Operator Relationship Specialty Start Date End Date Leah Barnard MD [address] [facility] [place] [address] PCP - General Internal Medicine 05/05/15 Maxim Siu MD [address] [place] [address] Assigned PCP 07/27/23 documented as of this encounter
--- OUTSIDE RECORDS SUMMARY | 2024-05-07 16:26 | XMS_ITS | Encounter Summary ---
Author Organization [facility] Address [address] [place] [address] Care Team Providers Care Crematory Attendant Name Role Phone Leah Barnard MD Primary Care Provider [phone] Leah Barnard MD Unavailable [phone] Shannon Saunders Unavailable Unavailable Karis Kc MD Unavailable [phone] Maxim Siu MD Unavailable [phone] Encounter Details Date Type Department Care Team (Late st Contact Info) Description 04/19/2021 [facility] [address] [place] [address] [address] [place] [phone] Leah Barnard MD [address] [place] [address] [place] CHAVIS [id number] Social History Tobacco Use Types Packs/Day Years Used Date Smoking Tobacco: Never Smokeless Tobacco: Never Alcohol Use Standard Drinks/Week Comments Yes 0 (1 standard drink = 0.6 oz pur e alcohol) once per week, couple drinks PHQ-2 Answer Date Recorded PHQ-2 Score 2 11/28/2020 Comments No Sex and Gender Information Value Date Recorded Sex Assigned at Female 04/11/2019 5:00 PM MANAGER SPECIALTY Legal Sex Female 3:16 AM MANAGER SPECIALTY Gender Identity Female 04/11/2019 5:00 PM MANAGER SPECIALTY Sexual Orientation Straight 04/11/2019 5: 00 PM MANAGER SPECIALTY documented as of this encounter Plan of Treatment Not on file documented as of this encounter Visit Diagnoses Not on filedocumented in this encounter Additional Health Concerns Assessment Noted Time PHQ-9 Depression Total Score: 18 08/19/ 021 7:02 AM CDT documented as of this encounter Care Teams Crematory Attendant Relationship Specialty Start Date End Date Leah Barnard MD [address] [facility] [place] [address] PCP - General Internal Medicine 05/05/15 Leah Barnard MD [address] [facility] [place] [address] Assigned PCP 06/10/16 07/26/23 Shannon Saunders Personal Advocate & Liaison (PAL) 11/23/20 01/08/22 Karis Kc MD [address] [place] [address] Assigned OBGYN Provider 12/04/20 3 Maxim Siu MD [address] [place] [address] Assigned PCP 07/27/23 documented as of this encounter
--- OUTSIDE RECORDS SUMMARY | 2024-05-07 16:26 | XMS_ITS | Patient Health Record ---
Author Organization [facility] Address [address] [place] [address] Care Team Providers Care Automation Machine Builder Name Role Phone Lo Montano Primary Care Provider Allergies Allergen (clinical drug ingredient) Drug/Non Drug Allergy documented on EMR Reaction Allergy Type Onset Date Status Amoxicillin-Pot Clavulanate Unknown Drug Allergy Active azithromycin Azithromycin Unknown Drug Allergy A ctive Reason For Referral No Information Medications Medication SIG (Take, Route, Frequency, Duration) Notes Start Date End Date Status Magnesium Active Multiple Vitamin Act jameson Glutathione 11/15/2023 Active Vitamin D Active Levothyroxine Sodium 50 MCG TAKE 1 TABLE T BY MOUTH ONCE DAILY. Oral for 90 Days Active [place] 3 Active Probiotic Active NAC 11/15/2023 Active L-Carnitine 11/15/2023 Active Selenium 11/15/2023 Active Immunizations Vaccine Route Administration Date Status Comme nts DTaP Unknown 1992 Administered DTaP Unknown 1992 Administered DTaP Unknown 1992 Administered DTaP Unknown 1992 Administered DTaP Unknown 1992 Administered DTaP Unknown 1992 Administered DTaP Unknown 06/02/1993 Administered DTaP Unknown 06/02/1993 Administered DTaP Unknown 02/08/1997 Administered DTaP Unknown 02/08/1997 Administered Fluzone Quadravalent .5mL syringe Unknown 05/28/2016 Ad ministered Hep A, ped/adol, 2 dose Unknown 12/16/2006 Administered Hep A, ped/adol, 2 dose Unknown 12/16/2006 Administered Hep A, ped/adol, 2 dose Unknown 03/03/2009 Administered Hep A, ped/adol, 2 dose Unknown 03/03/2009 Administered Hep A, unspecified formulation Unknown 12/16/2006 Admin istered Hep A, unspecified formulation Unknown 03/03/2009 Admin istered Hep B, adolescent or pediatr ic (11-19), 3 dose schedule Unknown 12/31/2000 Administered Hep B, adolescent or pediatr ic (11-19), 3 dose schedule Unknown 12/31/2000 Administered Hep B, adolescent or pediatr ic (11-19), 3 dose schedule Unknown 02/01/2001 Administered Hep B, adolescent or pediatr ic (11-19), 3 dose schedule Unknown 02/01/2001 Administered Hep B, adolescent or pediatr ic (11-19), 3 dose schedule Unknown 03/03/2003 Administered Hep B, adolescent or pediatr ic (11-19), 3 dose schedule Unknown 03/03/2003 Administered Hib (PRP-T), 4 dose schedule Unknown 1992 Adminis tered Hib (PRP-T), 4 dose schedule Unknown 1992 Adminis tered Hib (PRP-T), 4 dose schedule Unknown 1992 Adminis tered Hib (PRP-T), 4 dose schedule Unknown 1992 Adminis tered Hib (PRP-T), 4 dose schedule Unknown 02/21/1993 Adminis tered Hib (PRP-T), 4 dose schedule Unknown 02/21/1993 Adminis tered Hib (PRP-T), 4 dose schedule Unknown 06/02/1993 Adminis tered Hib (PRP-T), 4 dose schedule Unknown 06/02/1993 Adminis tered HPV (human papillomavirus), bivalent, 3 dose schedule Unknown 05/28/2016 Administered HPV (human papillomavirus), bivalent, 3 dose schedule Unknown 05/28/2016 Administered HPV (human papillomavirus), bivalent, 3 dose schedule Unknown 09/02/2017 Administered HPV (human papillomavirus), bivalent, 3 dose schedule Unknown 09/02/2017 Administered HPV (human papillomavirus), bivalent, 3 dose schedule Unknown 09/08/2018 Administered HPV (human papillomavirus), bivalent, 3 dose schedule Unknown 09/08/2018 Administered Influenza, live, intranasal Unknown 03/03/2009 Administ ered Influenza, live, intranasal Unknown 03/03/2009 Administ ered Influenza, seasonal, injecta ble, 6-35 months Unknown 03/14/2002 Administered Influenza, seasonal, injecta ble, 6-35 months Unknown 03/14/2002 Administered Influenza, seasonal, injecta ble, 6-35 months Unknown 03/03/2003 Administered Influenza, seasonal, injecta ble, 6-35 months Unknown 03/03/2003 Administered Influenza, seasonal, injecta ble, 6-35 months Unknown 03/18/2004 Administered Influenza, seasonal, injecta ble, 6-35 months Unknown 03/18/2004 Administered Influenza, seasonal, injecta ble, 6-35 months Unknown 03/16/2006 Administered Influenza, seasonal, injecta ble, 6-35 months Unknown 03/16/2006 Administered Influenza, seasonal, injecta ble, 6-35 months Unknown 03/03/2009 Administered Influenza, seasonal, injecta ble, 6-35 months Unknown 03/18/2009 Administered Influenza, seasonal, injecta ble, preservative free, 6-35 months Unknown 04/13/2013 Administered Influenza, seasonal, injecta ble, preservative free, 6-35 months Unknown 04/13/2013 Administered Influenza, unspecified formu lation (CPT 19934 Inactive) Unknown 05/28/2016 Administered Influenza, unspecified formu lation (CPT 91429 Inactive) Unknown 05/28/2016 Administered IPV Unknown 1992 Administered IPV Unknown 1992 Administered IPV Unknown 1992 Administered IPV Unknown 1992 Administered IPV Unknown 06/02/1993 Administered IPV Unknown 06/02/1993 Administered IPV Unknown 02/08/1997 Administered IPV Unknown 02/08/1997 Administered Meningococcal MCV4O (CVX 114) Unknown 12/02/2012 Admini stered Meningococcal MCV4O (CVX 114) Unknown 12/02/2012 Admini stered Meningococcal MPSV4 Unknown 12/16/2006 Administered Meningococcal MPSV4 Unknown 12/16/2006 Administered Meningococcal MPSV4 Unknown 12/02/2012 Administered Meningococcal MPSV4 Unknown 12/02/2012 Administered MMR Unknown 06/02/1993 Administered MMR Unknown 02/08/1997 Administered Td (adult) preservative free Unknown 03/03/2003 Adminis tered Td (adult) preservative free Unknown 03/03/2003 Adminis tered Td (adult), absorbed Unknown 03/03/2003 Administered Td (adult), absorbed Unknown 03/03/2003 Administered TDAP Unknown 04/13/2013 Administered TDAP Unknown 04/13/2013 Administered TDAP Unknown 05/05/2015 Administered TDAP Unknown 05/05/2015 Administered Typhoid, ViCPs Unknown 04/13/2013 Administered Typhoid, ViCPs Unknown 04/13/2013 Administered Varicella Unknown 02/08/1997 Administered Varicella Unknown 02/08/1997 Administered Social History Tobacco Use: Social History Observation Description Date Details (start date - stop date) Never Smoker NA - NA Tobacco Control (Standard) Question Answer Notes Tobacco use: Nonsmoker Problems Problem Type SNOMED Code ICD Code Onset Dates Problem Status W/U Status Risk Notes Problem [id number] Acquired hypothyroidism (E03.9) Active confirmed Vital Signs Heart Rate 79 /min 11/15/2023 Oximetry 99 % 11/15/2023 Blood pressure diastolic 82 mm Hg 11/15/2023 Height 68.5 in 11/15/2023 Blood pressure systolic 114 mm Hg 11/15/2023 Weight 136.8 lbs 11/15/2023 BMI 20.5 kg/m2 11/15/2023 Encounters Encounter Location Date Provider Diagnosis [address] [place] [address] 11/15/2023 Lo Montano Acquired hypothyroid ism E03.9 and Fatigue, unspecified type R53.[address] [place], [place] [id number] 07/23/2023 Lo Dusty [address] [place] [address] 08/21/2023 Lo Dusty Assessments Encounter Date Diagnosis (ICD Code) Assessment Notes Treatment Notes Treatment Clinical Notes Section Notes 11/15/2023 Fatigue, unspecified type (ICD-10 - R53.83) At this time, related to sleep deprivation as her infant takes about 2 hours to put to bed, but then wakes every 1-2 hours. Discussed ways to titrate his sleep schedule. Patient is wondering about other hormonal levels, but discussed we shoudl address the current physiologic difficulty is her lack of sleep for the past 6 months. 11/15/2023 Acquired hypothyroidism (ICD-10 - E03.9) Since adolescence. Up until , did not need thyroid treatment. hyperthyroidism requiring PTU. Currently therapeutic on levothyroxine. Recommend repeat hormones q 1 month given the large swings she had experienced . Plan Of Treatment No Information Insurance Providers Payer Name Payer Address Payer Phone Subscriber Number Group Number Insured Name Patient Relationship to Insured Coverage Start Date Coverage End Date [facility] Commercial (Ins. Bill) [address] [address] [place], [place] [id number] Laney Thakur Self - patient is the insured Medical (General) History Medical History History ICD Code Hypothyroidism hashimotos thyroiditis rheumatoid arthritis thyroid nodule diagnosed 2023. Needs 1 y ear follow up ultrasound. Surgical History Surgery Date(Month/Year) wisdom teeth extraction
--- OUTSIDE RECORDS SUMMARY | 2024-05-07 16:26 | XMS_ITS | Encounter Summary ---
Author Organization [facility] Address [address] [place] [address]. [place] [address] Care Team Providers Care Circulation Man Name Role Phone Leah Barnard MD Primary Care Provider [phone] Leah Barnard MD Unavailable [phone] Karis Kc MD Unavailable [phone] Maxim Siu MD Unavailable [phone] Encounter Details Date Type Department Care Team (Late st Contact Info) Description 08/25/[address] [facility] [address] [place] [address] Leah Barnard MD [address] [place] [address] [place] [id number] Social History Tobacco Use Types Packs/Day Years [...] often do you attend chur ch or voodoo services? More than 4 times per year 01/08/2022 Do you belong to any clubs o r organizations such as quaker groups, unions, fraternal or athletic groups, or [...] PHQ-2 Answer Date Recorded PHQ-2 Score 0 01/10/2022 [facility] - Occupational Stress [...] medical appointments or from getting medications? No 09/0 09/2021 In the past 12 months, has [...] place to sleep or slept in a senior care (including now)? No 01/08/2022 Comments No Sex and Gender Information Value Date Recorded Sex Assigned at Female 04/11/2019 5:00 PM OCTAVE BOARD ASSEMBLER Legal Sex Female 3:16 AM OCTAVE BOARD ASSEMBLER Gender Identity Female 04/11/2019 5:00 PM OCTAVE BOARD ASSEMBLER Sexual Orientation Straight 04/11/2019 5: 00 PM OCTAVE BOARD ASSEMBLER documented as of this encounter Plan of Treatment Not on file documented as of this encounter Visit Diagnoses Not on filedocumented in this encounter Additional Health Concerns Assessment Noted Time PHQ-9 Depression Total Score: 4 10/24/19 22 8:49 AM CDT documented as of this encounter Care Teams Circulation Man Relationship Specialty Start Date End Date Leah Barnard MD [address] [facility] [place] [address] PCP - General Internal Medicine 05/05/15 Leah Barnard MD [address] [facility] [place] [address] Assigned PCP 06/10/16 07/26/23 Karis Kc MD [address] [place] [address] Assigned OBGYN Provider 12/04/20 3 Maxim Siu MD [address] [place] [address] Assigned PCP 07/27/23 documented as of this encounter
--- OUTSIDE RECORDS SUMMARY | 2024-05-07 16:26 | XMS_ITS | Clinical Summary ---
Author Organization [employer] [facility] Address [place], [place] [address] Care Team Providers Care Aoc Operations Intelligence Chief Name Role Phone Leah Barnard MD Primary Care Provider [phone] Reed Ma Eloy DO Unavailable Allergies Active Allergy Reactions Criticality Noted Date Comments Amoxicillin-Pot Clavulanate Nausea Only 015 Bad reaction Azithromycin Nausea Only 05/05/2015 Bad reaction Medications cholecalciferol, vitamin D3, (D3-5000 ORAL) Activ e magnesium oxide 250 mg magnesium tablet Take by mouth. Active docosahexaenoic acid/epa (FISH OIL ORAL) Active vit no.[id number] c ( Vitamin) 27 mg iron- 800 mcg tab Active IODINE ORAL Active levothyroxine (SYNTHROID) 75 mcg tabletIndication s:Hypothyroidism , unspecified type Take 1 Tablet (75 mcg) by mouth once daily. 90 Tablet 3 4 Active levothyroxine (SYNTHROID) 50 mcg tabletIndication s:Hypothyroidism , unspecified type Take 1 Tablet (50 mcg) by mouth once daily. 90 Tablet 3 4 04/27/20 24 Discontinu ed(*Medica tion adjustment ) Active Problems Problem Noted Date Diagnosed Date Family history of carrier of genetic disease 11/2022 Overview (10/10/2022): Brother: Angelman's syndrome and congenital heart disease. Patients sister- [place], Bartter syndrome, Epilepsy Encounter for supervision of normal first , unspecified trimester 09/12/2022 Overview (09/12/2022): Gestational age at time of intake: 6w 4d Preferred name: Laney, 32 y.o. Partners name: Ko LMP: 07/28/22, Dating and viability ultrasound: ordered Concerns this : none Medical Hx: Family history of genetic and inherited disorders-patients brother: Angelman syndrome and congenital heart defect. Patients sister-[place], Bartter syndrome, Epilepsy History of UTI's, Thyroid disorder: yes, Tino's. HSV: no, OB History Para Term AB Living 1 SAB IAB Ectopic Multiple Live Births # Outcome Date GA Lbr Eddi/2nd Weight Sex Delivery Anes PTL Lv 1 Current BMI: 20 18.5-24.9 recommended weight gain 25-35# Level 2 FAS indicated : ? Early GTT indicated: no Genetic Screening: Undecided ASA indicated-High Risk for preeclampsia: no Smoker: no Domestic violence screen: Unable to ask domestic violence questions patient on speaker phone during intake with others in the room. 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 10/10/2022 Multiple pigmented nevi 09/02/2017 10/11/19 23 Amblyopia of eye, unspecified laterality 015 10/10/2022 Perennial allergic rhinitis 05/05/2015 0611/2022 Encounters Date Type Department Care Team Description 04/12/2024 Travel from Last 3 Months Immunizations Name Administration Dates Next Due DTaP 02/08/1997, 4,1992,06/08,1992 HIB PRP-T (ActHIB,Hiberix) 06/02/1993,,1992,04/01 HPV 9 (Gardasil 9) 09/08/2018,09/02/2017, 017 Hepatitis A (Peds) 03/03/2009,12/16/2006 Hepatitis B (Peds) 03/03/2003,02/01/2001, 001 Inactivated Polio Vaccine 02/08/1997,,1992,04/01 Influenza Virus, Unspecified 05/28/2016 Influenza, IIV3 (Age 6-35 mos) 04/13/2013 Influenza, IIV3 (Age >=3 years) 03/16/20 06,03/18/2004,03/03/2003,03/14 Influenza,LAIV3 Live Intrana lincoln (Flumist) 03/03/2009 MMR 02/08/1997,06/02/1993 Meningococcal Vaccine (Menactra) 12/02/2012 Meningococcal Vaccine (Menomune) 12/02/2012,12/04 Td (Age >=7 Years) 03/03/2003 Td, Preservative Free (age >= 7 Years) 3 Tdap 05/05/2015,04/13/2013 Typhoid (injectable) 04/13/2013 Varicella Vaccine 02/08/1997 Family History Medical History Relation Name Comments Good Health Brother Good Health Mother Good Health Sister Relation Name Status Comments Brother Alive Father Mother Alive Sister Alive Social History Tobacco Use Types Packs/Day Years Used Date Smoking Tobacco: Never Smokeless Tobacco: Never Tobacco Cessation:Counseling Given: Yes Alcohol Use Standard Drinks/Week Comments Not Currently 0 (1 standard drink = 0.6 oz pur e alcohol) PHQ-2 Answer Date Recorded PHQ-2 TOTAL SCORE 0 10/10/2022 Social Connections Answer Date Recorded Frequency of Communication with Friends and Fami ly Not on file 07/18/2023 Comments No Sex and Gender Information Value Date Recorded Sex Assigned at Not on file Legal Sex Female 6:10 PM 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 Gender Identity Not on file Sexual Orientation Not on file Obstetrics History Para Term AB IAB SAB Ectopic Multiple Livin g Live Births 1 Date Outcome GA Total Labor Labor/2nd/3rd Weight Sex Type Anes PTL Shanta A1 A5 Name Clin Last Filed Vital Signs Vital Sign Reading Time Taken Comments Blood Pressure 118/66 10/14/2023 10:51 AM CDT Pulse 84 10/14/2023 10:51 AM CDT Temperature 36.2 C (97.1 F) 07/16/2023 1:58 PM CDT Respiratory Rate 16 07/16/2023 1:58 PM CDT Oxygen Saturation 97% 07/16/2023 1:58 PM CDT Inhaled Oxygen Concentration - - Weight 64.4 kg (142 lb) 10/14/2023 10:51 AM CDT Height - - Body Mass Index - - Plan of Treatment Upcoming Encounters Date Type Department Care Team (Late st Contact Info) Description 06/09/2024 8:50 AM 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 Office Visit [facility] [address] [place] [address] Reed Ma DO [address] [place] [address] Health Maintenance Due Date Last Done Comments BMI (ht and wt on same day) for age 18+ 01/28/2010 Pap test for age 21-65 01/28/2013 Depression screening for age 12+ 10/11/2023 10/10/2022, 09/12/2022 COVID-19 vaccine series ( season) 2024 Influenza for age 9-49 01/05/2024 7, 03/03/2009, 03/16/2006, Additional history exists Tetanus booster 05/05/2025 05/05/2015, 01/2013, 03/03/2003, Additional history exists Tdap Completed 05/05/2015, 04/13/2013 HIV for age 15-65 Completed 10/10/2022 Hepatitis C screening for age 18-79 Completed 10/10/2022 Pneumococcal series for age 6-49 Aged Out No longer eligible based on patient's age to complete this topic Procedures Procedure Name Priority Date/Time Associated Diagnosis Comments LC HIV-1/O/2, 4TH GENERATION Routine 10/10/2022 10:28 AM CDT Encounter for supervision of normal first , unspecified trimester LC HCV ANTIBODY RFX TO QUANT PCR Routine 10/10/2022 10:28 AM CDT Encounter for supervision of normal first , unspecified trimester from Last 3 Months or Most Recently Relevant to Health Maintenance Results * LC HCV ANTIBODY RFX TO QUANT PCR (10/10/2022 10:28 AM CDT) HCV Ab Non Reactive Non Reactive 10/12/2022 2:08 PM CDT [facility] Blood BLOOD SPECIMEN / Unknown Venipuncture / Unknown 10/10/2022 10:28 AM CDT 10/10/2022 10:33 AM CDT Narrative [facility] - 10/12/2022 2:08 PM CDT Performed at: - [address] [id number] Formal Wear Rental Clerk: Wei Montero MD, Phone: [phone] us Yamile Espinoza DO LABORATORY Final Resu lt Performing Organization Address [facility]/ZIP Co de Phone Number [facility] ([facility]) [address] [place] [address] * LC HIV-1/O/2, 4TH GENERATION (10/10/2022 10:28 AM CDT) [facility] HIV Scr 4th Gen Non Reactive Non Reactive 10/12/2022 12:09 PM CDT [facility] Comment: HIV Negative HIV-1/HIV-2 antibodies and HIV-1 p24 antigen were NOT detected. There is no laboratory evidence of HIV infection. Blood BLOOD SPECIMEN / Unknown Venipuncture / Unknown 10/10/2022 10:28 AM CDT 10/10/2022 10:33 AM CDT [facility] ([facility]) - 10/12/2022 12:09 PM CDT Performed at: [address] [id number] Formal Wear Rental Clerk: Wei Montero MD, Phone: [phone] Yamile Espinoza DO LABORATORY Final Resu lt Performing Organization Address [facility]/ZIP Co de Phone Number [facility] [address] [place] [address] from Last 3 Months or Most Recently Relevant to Health Maintenance Insurance [facility] Care Teams Aoc Operations Intelligence Chief Relationship Specialty Start Date End Date Leah Barnard MD [address] [facility] [place] [address] PCP - General Pediatric 09/12/22 Reed Ma DO [address] [facility] [address] [place] [address] Endocrinology 07/18/23
--- OUTSIDE RECORDS SUMMARY | 2024-05-07 16:26 | XMS_ITS | Clinical Summary ---
Author Organization [facility] Address [address] [place] [address] Care Team Providers Care Calculation Reviewer Name Role Phone Leah Barnard MD Primary Care Provider [phone] Maxim Siu MD Unavailable [phone] Allergies Active Allergy Reactions Criticality Noted Date Comments Amoxicillin-Pot Clavulanate Nausea High 05/05/20 15 Bad reaction Amoxicillin-Pot Clavulanate Nausea High 05/05/20 15 Bad reaction Azithromycin Nausea High 05/05/2015 Bad reaction Medications Probiotic Product (PROBIOTIC DAILY PO) Active Magnesium Oxide 250 MG TABS Active multivitamin w/minerals (MULTI-VITAMIN) tablet Take 1 tablet by mouth daily Active Cholecalciferol (VITAMIN D-3) 125 MCG (5000 UT) TABS Active [place]-3 Fatty Acids (FISH OIL PO) Active nystatin (MYCOSTATIN) 842564 UNIT/ML suspensionIndic ations:Oral thrush Take 5 mLs (500,000 Units) by mouth 4 times daily 473 mL 1 09/12/2023 Active clotrimazole (MYCELEX) 10 MG lozengeIndicati ons:Oral thrush Place 1 lozenge (10 mg) inside cheek 5 times daily 70 lozenge 1 09/27/2023 Active Active Problems Problem Noted Date Diagnosed Date Kyleena Inserted : Due for removal 11/28/2511/28 Overview (11/28/2020): Lot # [id number] 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 09/02/2017 Dysmenorrhea 05/05/2015 Perennial allergic rhinitis 05/05/2015 Amblyopia of eye, unspecified laterality 015 Resolved Problems Problem Noted Date Diagnosed Date Resolved Date ParaGard IUD inserted : Due for removal 04/202904/14/2019 11/28/2020 Overview (04/14/2019): Lot # [id number] Rheumatoid arthritis, involv ing unspecified site, unspecified [...] Adsorbed 03/03/2003 Typhoid IM 04/13/2013 Varicella 02/08/1997 Family History Medical History Relation Comments Other - See Comments Brother Aden sy ndrome Depression Father Sleep Apnea Father Other - See Comments Maternal Grandmother sangita al imbalances Family History Negative Mother Diabetes Paternal Grandfather Other - See Comments Sister Nisa jarrett yndrome, DD Relation Status Comments Brother Father suicide Maternal Grandmother Mother Paternal Grandfather Sister Social History Tobacco Use Types Packs/Day Years [...] often do you attend chur ch or restorationist services? More than 4 times per year 01/08/2022 Do you belong to any clubs o r organizations such as druze groups, unions, fraternal or athletic groups, or [...] Answer Date Recorded PHQ-2 Score 0 09/12/2023 [facility] - Occupational Stress Questionnaire Answer Date [...] place to sleep or slept in a long-term (including now)? 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 Legal Sex Female 3:16 AM SUPERVISOR BRAKE REPAIR Gender Identity Female 04/11/2019 5:00 PM SUPERVISOR BRAKE REPAIR Sexual Orientation Straight 04/11/2019 5: 00 PM SUPERVISOR BRAKE REPAIR Last Filed Vital Signs Vital Sign Reading [...] 09/12/2023 10:29 AM CDT Plan of Treatment Health Maintenance Due Date Last Done Comments ANNUAL REVIEW OF HM ORDERS 10/23/2022 10/23/2021 YEARLY PREVENTIVE VISIT 01/10/2023 01/11/20 22, 05/10/2020, 09/08/2018, Additional history exists COVID-19 Vaccine ( season) 2024 INFLUENZA VACCINE (#1) 2024 7, 05/28/2016, 04/13/2013, Additional history exists TSH W/FREE T4 REFLEX 09/11/2024 09/12/2023, 09/12/2023, 08/19/2023, Additional history exists PAP 01/10/2025 01/10/2022, 05/0 10/2018, 05/05/2015 DTAP/TDAP/TD IMMUNIZATION (8 - Td or Tdap) 05/05/2025 05/05/2015, 04/13/2013, 03/03/2003, Additional history exists ADVANCE CARE PLANNING 01/10/2027 01/10/2022 RSV VACCINE (1 - 1-dose 75+ series) 01/28/2067 HEPATITIS B IMMUNIZATION Completed 003, 03/03/2003, 02/01/2001, Additional history exists MENINGITIS IMMUNIZATION Aged Out 12/03/19 13, 12/02/2012, 12/16/2006 No longer eligible based on patient's age to complete this topic HIV SCREENING Completed 09/02/2017 HPV IMMUNIZATION Completed 09/08/2018, , 05/28/2016 PHQ-2 (once per calendar year) Completed 09/12/2023, 09/12/2023, 07/23/2023, Additional history exists HEPATITIS C SCREENING Discontinued Pneumococcal Vaccine: Pediatrics (0 to 5 Years) and At-Risk Patients (6 to 49 Years) Aged Out No longer eligible based on patient's age to complete this topic RSV MONOCLONAL ANTIBODY Aged Out No l onger eligible based on patient's age to complete [...] - BLOOD ORDERABLES Final Result [facility] [address] [facility] [address] [facility], [address] [place] [address], [facility] * Pap screen reflex to HPV if [...] component of this testing was completed at [facility] 01/12/2022 9:13 AM CDT SPECIALTY LABS Brushing CERVIX UTERI STRUCTURE / Unknown Non-blood Collection / Unknown 01/10/2022 7:35 AM CDT 01/10/2022 8:15 AM CDT us Leah CARTER - JAY CASTILLO Final Res ult [facility] [address] [facility] [address] [facility], [address] [place] [address], [facility] [phone] * HIV Antigen Antibody Combo (09/02/2017 8:43 AM CDT) HIV Antigen Antibody Combo Nonreactive NR^Nonrea ctive 09/02/2017 7:12 PM CDT [facility] Comment:HIV-1 p24 Ag & HIV-1 /HIV-2 Ab Not Detected Blood specimen (specimen) 09/02/2017 8:43 AM CDT 09/02/2017 8:44 AM CDT us Leah Barnard MD LAB - BLOOD ORDERABLES Fi nal Result Performing Organization Address City/State/[facility] Co de Phone Number [facility] [address] [place] [address] from Last 3 Months or Most Recently Relevant to Health Maintenance Insurance [facility] COMMERCIAL [facility] Address: [address] [address] [facility] [email or web address] Care Teams Calculation Reviewer Relationship Specialty Start Date End Date Leah Barnard MD [address] [facility] [place] [address] PCP - General Internal Medicine 05/05/15 Maxim Siu MD [address] [place] [address] Assigned PCP 07/27/23
--- OUTSIDE RECORDS SUMMARY | 2024-05-07 16:27 | XMS_ITS | Encounter Summary ---
Author Organization [place] Address [facility] [place] [address] Care Team Providers Care Sewing Machine Operator Plastic Zipper Name Role Phone Leah Barnard MD Primary Care Provider [phone] Leah Branard MD Unavailable [phone] Megan Schneider MD Unavailable + [phone] Shannon Saunders Unavailable Unavailable Karis Kc MD Unavailable [phone] Maxim Siu MD Unavailable [phone] Encounter Details Date Type Department Care Team (Late st Contact Info) Description 08/15/2020 [facility] Medical Advice [facility] [place] [address] [place] [address] [place] [address] [place] [address] [place] [address] Social History Tobacco Use Types Packs/Day Years Used Date Smoking Tobacco: Never Smokeless Tobacco: Never Alcohol Use Standard Drinks/Week Comments Yes 0 (1 standard drink = 0.6 oz pur e alcohol) once per week, couple drinks PHQ-2 Answer Date Recorded PHQ-2 Total Score (Adult) - Positive if 3 or more points; Administer PHQ-9 if positive 4 08/18/2020 Comments No Sex and Gender Information Value Date Recorded Sex Assigned at Female 04/11/2019 5:00 PM DIRECTOR GIFT Legal Sex Female 3:16 AM DIRECTOR GIFT Gender Identity Female 04/11/2019 5:00 PM DIRECTOR GIFT Sexual Orientation Straight 04/11/2019 5: 00 PM DIRECTOR GIFT documented as of this encounter Plan of Treatment Not on file documented as of this encounter Visit Diagnoses Not on filedocumented in this encounter Care Teams Sewing Machine Operator Plastic Zipper Relationship Specialty Start Date End Date Leah Barnard MD [address] [facility] [place] [address] PCP - General Internal Medicine 05/05/15 Leah Barnard MD [address] [facility] [place] [address] Assigned PCP 06/10/16 07/26/23 Megan Schneider MD [address] [place] [address] Assigned OBGYN Provider 02/26/20 Shannon Saunders Personal Advocate & Liaison (PAL) 11/23/20 01/08/22 Karis Kc MD [address] [place] [address] Assigned OBGYN Provider 12/04/20 3 Maxim Siu MD [address] [place] [address] Assigned PCP 07/27/23 documented as of this encounter
--- OUTSIDE RECORDS SUMMARY | 2024-05-07 16:27 | XMS_ITS | Encounter Summary ---
Author Organization [facility] Address [facility] [place] [address] Care Team Providers Care Powder Shoveler Name Role Phone Leah Barnard MD Primary Care Provider [phone] Leah Barnard MD Unavailable [phone] Leah Barnard MD Unavailable [phone] Megan Schneider MD Unavailable + [phone] Shannon Saunders Unavailable Unavailable Karis Kc MD Unavailable [phone] Maxim Siu MD Unavailable [phone] Reason for Visit * Reason Comments Medication Refill norgestrel-ethinyl e stradiol (LOW-OGESTREL) 0.3-30 MG-MCG per tablet Encounter Details Date Type Department Care Team (Late st Contact Info) Description 07/05/2018 [facility] [place] [address] [place] [address] Leah Barnard MD [address] [place] [address] [place] [address] Medication Refill (norgestrel-ethinyl estradiol (LOW-OGESTREL) 0.3-30 MG-MCG per tablet) Social History Tobacco Use Types Packs/Day Years Used Date Smoking Tobacco: Never Smokeless Tobacco: Never Alcohol Use Standard Drinks/Week Comments Yes 0 (1 standard drink = 0.6 oz pur e alcohol) PHQ-2 Answer Date Recorded PHQ-2 Score 0 05/13/2018 Comments No Sex and Gender Information Value Date Recorded Sex Assigned at Female 04/11/2019 5:00 PM PAWN BROKER Legal Sex Female 3:16 AM PAWN BROKER Gender Identity Female 04/11/2019 5:00 PM PAWN BROKER Sexual Orientation Straight 04/11/2019 5: 00 PM PAWN BROKER documented as of this encounter Miscellaneous Notes * Telephone Encounter - Stephanie Tinajero CMA - 07/08/2018 6:16 PM CST Spoke with pt px scheduled 09/08/18 Stephanie Tinajero MA BROKER * Telephone Encounter - Kerwin Vanegas RN - 07/08/2018 2:16 PM PAWN BROKER Medication is being filled for 1 time refill only due to: Patient due for OV 08/2018. Routing to team to inform and assist in scheduling. Julianne Vanegas RN [facility] - Triage BROKER * Telephone Encounter - Jalen Saldaña - 07/06/2018 3:40 PM CST Requested Prescriptions Pending Prescriptions Disp Refills ??? norgestrel-ethinyl estradiol (LOW-OGESTREL) 0.3-30 MG-MCG tablet [Pharmacy Med Name: LOW-OGESTREL TABLETS 28] Last Written Prescription Date: 09/02/2017 Last Fill Quantity: 84 tablet, # refills: 3 Last office visit: 09/02/2017 with prescribing provider: Leah Barnard MD Future Office Visit: 84 tablet 0 Sig: TAKE 1 TABLET BY MOUTH DAILY. GENERIC EQUIVALENT FOR CRYSELLE Contraceptives Protocol Passed - 07/05/2018 9:43 PM Passed - Patient is not a current smoker if age is 35 or older Passed - Recent (12 mo) or future (30 days) visit within the authorizing provider's specialty Patient had office visit in the last 12 months or has a visit in the next 30 days with authorizing provider or within the authorizing provider's specialty. See Patient Info tab in inbasket, or Choose Columns in Meds & Orders section of the refill encounter. Passed - Medication is active on med list Passed - No active on record Passed - No positive test in past 12 months BROKER documented in this encounter Plan of Treatment Not on file documented as of this encounter Visit Diagnoses Diagnosis Dysmenorrhea documented in this encounter Care Teams Powder Shoveler Relationship Specialty Start Date End Date Leah Barnard MD [address] [facility] [place] [address] PCP - General Internal Medicine 05/05/15 Leah Barnard MD [address] [place] [address] [place] [address] PCP - Assigned PCP 06/10/16 07/08/18 Leah Barnard MD [facility] [place] [address] Assigned PCP 06/10/16 07/26/23 Megan Schneider MD [address] [place] [address] Assigned OBGYN Provider 02/26/20 Shannon Saunders Personal Advocate & Liaison (PAL) 11/23/20 01/08/22 Karis Kc MD [address] [place] [address] Assigned OBGYN Provider 12/04/20 3 Maxim Siu MD [address] [place] [address] Assigned PCP 07/27/23 documented as of this encounter
--- OUTSIDE RECORDS SUMMARY | 2024-05-07 16:27 | XMS_ITS | Encounter Summary ---
Author Organization [place] Address [address] [place] [address]. [place] [address] Care Team Providers Care Clinical Lab Technologist Name Role Phone Leah Barnard MD Primary Care Provider [phone] Leah Barnard MD Unavailable [phone] Megan Schneider MD Unavailable + [phone] Shannon Saunders Unavailable Unavailable Karis Kc MD Unavailable [phone] Maxim Siu MD Unavailable [phone] Encounter Details Date Type Department Care Team (Late st Contact Info) Description 03/09/2020 [facility] Medical Advice [facility] [place] [address] [place] [address] [place] [address] [place] [address] [place] [id number] Social History Tobacco Use Types Packs/Day Years Used Date Smoking Tobacco: Never Smokeless Tobacco: Never Alcohol Use Standard Drinks/Week Comments Yes 0 (1 standard drink = 0.6 oz pur e alcohol) once per week, couple drinks PHQ-2 Answer Date Recorded PHQ-2 Score 0 05/13/2018 Comments No Sex and Gender Information Value Date Recorded Sex Assigned at Female 04/11/2019 5:00 PM ALUMINUM MOLDING MACHINE OPERATOR Legal Sex Female 3:16 AM ALUMINUM MOLDING MACHINE OPERATOR Gender Identity Female 04/11/2019 5:00 PM ALUMINUM MOLDING MACHINE OPERATOR Sexual Orientation Straight 04/11/2019 5: 00 PM ALUMINUM MOLDING MACHINE OPERATOR documented as of this encounter Plan of Treatment Not on file documented as of this encounter Visit Diagnoses Not on filedocumented in this encounter Care Teams Clinical Lab Technologist Relationship Specialty Start Date End Date Leah Barnard MD [address] [facility] [place] [address] PCP - General Internal Medicine 05/05/15 Leah Barnard MD [address] [facility] [place] [address] Assigned PCP 06/10/16 07/26/23 Megan Schneider MD [address] [place] [address] Assigned OBGYN Provider 02/26/20 Shannon Saunders Personal Advocate & Liaison (PAL) 11/23/20 01/08/22 Karis Kc MD [address] [place] [address] Assigned OBGYN Provider 12/04/20 Maxim Ashford MD [address] [place] [address] Assigned PCP 07/27/23 documented as of this encounter
--- OUTSIDE RECORDS SUMMARY | 2024-05-07 16:27 | XMS_ITS | Encounter Summary ---
Author Organization [place] Address [facility] [place] [address] Care Team Providers Care Dental Scheduling Coordinator Name Role Phone Leah Barnard MD Primary Care Provider + [phone] Leah Barnard MD Unavailable [phone] Megan Schneider MD Unavailable [phone] Shannon Saunders Unavailable Unavailable Karis Kc MD Unavailable [phone] Maxim Siu MD Unavailable [phone] Reason for Referral * Diagnostic Imaging Ultrasound (Routine) - Closed Specialty Diagnoses / Procedures Referred By Contcesilia t Referred To Contact Diagnoses Intrauterine device surveillance Procedures US Pelvic Complete w Transvaginal Suzy Morgan DO Phone: tel: fax: Referral ID Status Reason Start Date Expiration Date Visits Re quested Visits Authorized [id number] Closed 11/02/2019 11/01/2020 1 1 Encounter Details Date Type Department Care Team (Late st Contact Info) Description 10/29/2019 [facility] Medical Advice [facility] [address] [place] [address] Karis Kc MD [address] [place] [address] Intrauterine device surveillance (Primary Dx) Social History Tobacco Use Types Packs/Day Years Used Date Smoking Tobacco: Never Smokeless Tobacco: Never Alcohol Use Standard Drinks/Week Comments Yes 0 (1 standard drink = 0.6 oz pur e alcohol) once per week, couple drinks PHQ-2 Answer Date Recorded PHQ-2 Score 0 05/13/2018 Comments No Sex and Gender Information Value Date Recorded Sex Assigned at Female 04/11/2019 5:00 PM HOME THERAPY CLINICIAN Legal Sex Female 3:16 AM HOME THERAPY CLINICIAN Gender Identity Female 04/11/2019 5:00 PM HOME THERAPY CLINICIAN Sexual Orientation Straight 04/11/2019 5: 00 PM HOME THERAPY CLINICIAN documented as of this encounter Miscellaneous Notes * Telephone Encounter - Taylor Delacruz RN - 11/02/2019 2:41 PM CDT My chart message sent to the pt. Taylor Hernandez RN * Telephone Encounter - Suzy Morgan DO - 11/02/2019 2:38 PM CDT Yes us please advise Order placed Dr. Suzy Morgan DO Obstetrics and Gynecology [facility] [place] * Telephone Encounter - Taylor Delacruz RN - 11/02/2019 8:38 AM CDT Please address the my chart message. Would you like the pt to have a pelvic US to check the placement of the IUD? Taylor Hernandez RN documented in this encounter Plan of Treatment Not on file documented as of this encounter Results * US Pelvic Complete w Transvaginal (11/23/2019 8:44 AM CDT) Anatomical Region Laterality Modality Abdomen/Pelvis Ultrasound Narrative 11/23/2019 9:34 PM CDT [facility] Obstetrics & Gynecology [address] [place] [address] ULTRASOUND - PELVIC MAMMALOGIST Referring MD: Suzy Morgan DO CLINICAL INFORMATION Indications for ultrasound: IUD Check, Spotting LMP: Oct 23 Hormones: IUD Measurements: Uterus: 7.1 x 4.7 x 2.9cm Position is anteverted. Contour is smooth/regular. Endo cav: 5.2mm Smooth/regular/wnl Cervix: WNL Right ovary: 4.3 X 2.4 X 2.0cm Wnl, multiple follicles noted Left ovary: 3.9 x 2.1 x 2.3 cm Wnl, multiple follicles noted Cul de sac: no free fluid Complete pelvic ultrasound using realtime transabdominal and transvaginal scanning. Bladder appears normal Normal uterus, bilateral adnexa. Normal pelvic ultrasound study. IUD in place appropriately in the uterine cavity. Megan Schneider MD FACOG Obstetrics and Gynecology [facility] us Suzy Morgan DO IMG US ORDERABLES Final R esult documented in this encounter Visit Diagnoses Diagnosis Intrauterine device surveillance- Primary Surveillance of previously prescribed intrauterine contraceptive device Intrauterine device surveillance Surveillance of previously prescribed intrauterine contraceptive device documented in this encounter Care Teams Dental Scheduling Coordinator Relationship Specialty Start Date End Date Leah Barnard MD [address] [place] [address] [place] [address] PCP - General Internal Medicine 05/05/15 Leah Barnard MD [address] [place] [address] [place] [address] Assigned PCP 2/5/17 3/22/24 Megan Schneider MD [address] [place] [address] Assigned OBGYN Provider 02/26/20 Shannon Saunders Personal Advocate & Liaison (PAL) 11/23/20 01/08/22 Karis Kc MD [address] [place] [address] Assigned OBGYN Provider 12/04/20 3 Maxim Siu MD [address] [place] [address] Assigned PCP 07/27/23 documented as of this encounter
--- OUTSIDE RECORDS SUMMARY | 2024-05-07 16:27 | XMS_ITS | Encounter Summary ---
Author Organization [facility] Address [address] [place] [address] Care Team Providers Care Informatica Mdm Architect Name Role Phone Leah Barnard MD Primary Care Provider + [phone] Leah Barnard MD Unavailable [phone] Megan Schneider MD Unavailable +[phone] Shannon Saunders Unavailable Unavailable Karis Kc MD Unavailable [phone] Maxim Siu MD Unavailable [phone] Encounter Details Date Type Department Care Team (Latest Contact Info) Description 08/18/2020 Historic Results Social History Tobacco Use Types Packs/Day Years [...] Sex Assigned at Female 04/11/2019 5:00 PM DIGESTER HAND Legal Sex Female 3:16 AM DIGESTER HAND Gender Identity Female 04/11/2019 5:00 PM DIGESTER HAND Sexual Orientation Straight 04/11/2019 5: 00 PM DIGESTER HAND documented as of this encounter Plan of Treatment Not on file documented as of this encounter Visit Diagnoses Not on filedocumented in this encounter Additional Health Concerns Assessment Noted Time PHQ-9 Depression Total Score: 18 021 7:02 AM CDT documented as of this encounter Care Teams Informatica Mdm Architect Relationship Specialty Start Date End Date Leah Barnard MD [address] [facility] [place] [address] PCP - General Internal Medicine 05/05/15 Leah Barnard MD [address] [facility] [place] [address] Assigned PCP 06/10/16 07/26/23 Megan Schneider MD [address] [place] [address] Assigned OBGYN Provider 02/26/20 Shannon Saunders Personal Advocate & Liaison (PAL) 11/23/20 01/08/22 Karis Kc MD [address] [place] [address] Assigned OBGYN Provider 12/04/20 3 Maxim Siu MD [address] [place] [address] Assigned PCP 07/27/23 documented as of this encounter
--- OUTSIDE RECORDS SUMMARY | 2024-05-07 16:27 | XMS_ITS | Encounter Summary ---
Author Organization [place] Address [address] [place] [address]. [place] [address] Care Team Providers Care Configuration Management Specialist Name Role Phone Leah Barnard MD Primary Care Provider [phone] Leah Barnard MD Unavailable [phone] Megan Schneider MD Unavailable + [phone] Shannon Saunders Unavailable Unavailable Karis Kc MD Unavailable [phone] Maxim Siu MD Unavailable [phone] Encounter Details Date Type Department Care Team (Late st Contact Info) Description 11/30/2019 [facility] Medical Advice [facility] [place] [address] [place] [address] [place] [address] [place] [address] [place] [id number] Social History Tobacco Use Types Packs/Day Years Used Date Smoking Tobacco: Never Smokeless Tobacco: Never Alcohol Use Standard Drinks/Week Comments Yes 0 (1 standard drink = 0.6 oz pur e alcohol) once per week, couple drinks PHQ-2 Answer Date Recorded PHQ-2 Score 0 05/13/2018 Comments No Sex and Gender Information Value Date Recorded Sex Assigned at Female 04/11/2019 5:00 PM CATERING SERVER Legal Sex Female 3:16 AM CATERING SERVER Gender Identity Female 04/11/2019 5:00 PM CATERING SERVER Sexual Orientation Straight 04/11/2019 5: 00 PM CATERING SERVER COVID-19 Exposure Response Date Recorded In the last month, have you been in contact with someone who was confirmed or suspected to have Coronavirus / COVID-19? No / Unsure 11/23/2019 8:12 AM CDT documented as of this encounter Miscellaneous Notes * Telephone Encounter - Verna Lopez RN - 12/02/2019 8:21 AM CDT Patient informed of message below. Follow up appt scheduled. Verna Lopez RN * Telephone Encounter - Verna Lopez RN - 12/02/2019 8:15 AM CDT Sorry that this is happening to her, but this sounds like it could be normal for a copper IUD. ??Sometimes periods get heavier and longer using the copper IUD. ??Typically we see improved bleeding patterns with the hormonal IUDs only (like the Mirena). ??If she would like to discuss getting a different IUD, she can schedule an appointment with Gynecology. ?? sent by Dr Duc Lopez RN * Telephone Encounter - Jolie Castano RN - 12/01/2019 10:27 AM CDT Routing to Dr. Kc in OBGYN. Jolie Castano RN [facility] -- Triage Nurse documented in this encounter Plan of Treatment Not on file documented as of this encounter Visit Diagnoses Not on filedocumented in this encounter Care Teams Configuration Management Specialist Relationship Specialty Start Date End Date Leah Barnard MD [address] [facility] [place] [address] PCP - General Internal Medicine 05/05/15 Leah Barnard MD [address] [facility] [place] [id number] Assigned PCP 06/10/16 07/26/23 Megan Schneider MD [address] [place] [address] Assigned OBGYN Provider 02/26/20 Shannon Saunders Personal Advocate & Liaison (PAL) 11/23/20 01/08/22 Karis Kc MD [address] [place] [address] Assigned OBGYN Provider 12/04/20 3 Maxim Siu MD [address], [place] [address] Assigned PCP 07/27/23 documented as of this encounter
--- OUTSIDE RECORDS SUMMARY | 2024-05-07 16:27 | XMS_ITS | Encounter Summary ---
Author Organization [facility] Address [address] [place] [id number] Care Team Providers Care Pearl Restorer Name Role Phone Leah Barnard MD Primary Care Provider [phone] Leah Barnard MD Unavailable [phone] Leah Barnard MD Unavailable [phone] Megan Schneider MD Unavailable + [phone] Shannon Saunders Unavailable Unavailable Karis Kc MD Unavailable [phone] Maxim Siu MD Unavailable [phone] Reason for Visit * Reason Onset Date Comments Refill Request 05/02/2016 OLOPATADINE 0.6% SOLUTION Refill Request 05/02/2016 CRYSELLE 28 TABL ET Encounter Details Date Type Department Care Team (Late st Contact Info) Description 05/02/2016 Refill [facility] [place] [address] [place] [address] Leah Barnard MD [address] [place] [address] [place] [address] Refill Request (OLOPATADINE 0.6% SOLUTION); Refill Request (CRYSELLE 28 TABLET) Social History Tobacco Use Types Packs/Day Years Used Date Smoking Tobacco: Never Alcohol Use Standard Drinks/Week Comments Yes 0 (1 standard drink = 0.6 oz pur e alcohol) Comments No Sex and Gender Information Value Date Recorded Sex Assigned at Female 04/11/2019 5:00 PM GIS DATABASE ADMINISTRATOR Legal Sex Female 3:16 AM GIS DATABASE ADMINISTRATOR Gender Identity Female 04/11/2019 5:00 PM GIS DATABASE ADMINISTRATOR Sexual Orientation Straight 04/11/2019 5: 00 PM GIS DATABASE ADMINISTRATOR documented as of this encounter Miscellaneous Notes * Telephone Encounter - Francoise Palmer - 05/03/2016 12:58 PM CST Pt called back scheduled for 05/28/[address] Barnard Thanks Daljit Vang Team Coodinator DATABASE ADMINISTRATOR * Telephone Encounter - Francoise Palmer - 05/03/2016 12:05 PM CST LVM for patient to callback. Thanks Daljit Vang Team Coodinator DATABASE ADMINISTRATOR * Telephone Encounter - Vickie Ballard RN - 05/02/2016 2:21 PM GIS DATABASE ADMINISTRATOR Pt uses nasal spray for allergic rhinitis. Sent 3 months supply. Pt is due for routine px & pelvic check. Please help pt to schedule an appointment for more refills. Thanks. Kevin exhauster Nurse DATABASE ADMINISTRATOR * Telephone Encounter - Alisia Nayak - 05/02/2016 2:08 PM CST OLOPATADINE 0.6% SOLUTION Last Written Prescription Date: 05/05/2015 Last Fill Quantity: 30.5 G, # refills: 11 Last Office Visit with [facility], P or Health prescribing provider: 05/05/2015 CRYSELLE 28 TAB Last Written Prescription Date: 11/29/2015 Last Fill Quantity: 84, # refills: 1 Last Office Visit with [facility], P or Health prescribing provider: 05/05/2015 DATABASE ADMINISTRATOR documented in this encounter Plan of Treatment Not on file documented as of this encounter Visit Diagnoses Diagnosis Dysmenorrhea- Primary Perennial allergic rhinitis Allergic rhinitis, cause unspecified documented in this encounter Care Teams Pearl Restorer Relationship Specialty Start Date End Date Leah Barnard MD [address] [facility] [place] [address] PCP - General Internal Medicine 05/05/15 [place] [address] [place] [address] [place] [address] PCP - Assigned PCP 06/10/16 07/08/18 Leah Barnard MD [address] [place] [address] [place] [address] Assigned PCP 06/10/16 07/26/23 Megan Schneider MD [address] [place] [address] Assigned OBGYN Provider 02/26/20 Shannon Saunders Personal Advocate & Liaison (PAL) 11/23/20 01/08/22 Karis Kc MD [address] [place] [address] Assigned OBGYN Provider 12/04/20 3 Maxim Siu MD [address] [place] [address] Assigned PCP 07/27/23 documented as of this encounter
--- OUTSIDE RECORDS SUMMARY | 2024-05-07 16:27 | XMS_ITS | Encounter Summary ---
Author Organization [facility] [place] [address] Care Team Providers Care Coin Wrapping Machine Operator Name Role Phone Leah Barnard MD Primary Care Provider [phone] Leah Barnard MD Unavailable [phone] Megan Schneider MD Unavailable [phone] Shannon Saunders Unavailable Unavailable Karis Kc MD Unavailable [phone] Maxim Siu MD Unavailable [phone] Encounter Details Date Type Department Care Team (Late st Contact Info) Description 08/20/2020 [facility] Medical Advice [facility] [place] [address] [place] [address] Phoebe Franklin NP [address] [facility] [place] [address] Social History Tobacco Use [...] Sex Assigned at Female 04/11/2019 5:00 PM BEHAVIORAL HEALTH THERAPIST Legal Sex Female 3:16 AM BEHAVIORAL HEALTH THERAPIST Gender Identity Female 04/11/2019 5:00 PM BEHAVIORAL HEALTH THERAPIST Sexual Orientation Straight 04/11/2019 5: 00 PM BEHAVIORAL HEALTH THERAPIST documented as of this encounter Miscellaneous Notes * Telephone Encounter - Shannon Saunders - 08/22/2020 9:26 AM CDT Patient following-up from appointment on 08/18/2020. 1. Reactive depression Worsening Patient to consider either escitalopram or sertraline for depression F/u over MyChart Counseled on care Shannon Saunders EMT at 9:27 AM on August 22, 2020 Clinic Health Guide [phone] documented in this encounter Plan of Treatment Not on file documented as of this encounter Visit Diagnoses Not on filedocumented in this encounter Additional Health Concerns Assessment Noted Time PHQ-9 Depression Total Score: 18 021 7:02 AM CDT documented as of this encounter Care Teams Coin Wrapping Machine Operator Relationship Specialty Start Date End Date Leah Barnard MD [address] [facility] [place] [id number] PCP - General Internal Medicine 05/05/15 Leah Barnard MD [address] [facility] [place] [address] Assigned PCP 06/10/16 07/26/23 Megan Schneider MD [address] [facility] [address] Assigned OBGYN Provider 02/26/20 Shannon Saunders Personal Advocate & Liaison (PAL) 11/23/20 01/08/22 Karis Kc MD [address] [place] [address] Assigned OBGYN Provider 12/04/20 3 Maxim Siu MD [address] [place] [address] Assigned PCP 07/27/23 documented as of this encounter
--- NOTE | 2024-05-08 10:15 | CRLHL7_ITS ---
For Patients: As a result of the Cures Act, medical imaging exams and procedure reports are released immediately into your electronic medical record. You may view this report before your referring provider. If you have questions, please contact your health care provider. INDICATION: First trimester scan, establish dates. COMPARISON: None. TECHNIQUE: Real-time gan-scale imaging of the pelvis was performed. FINDINGS: Sonographic imaging demonstrates a single living intrauterine gestation. The embryo demonstrates a regular cardiac rate measuring 121 beats per minute. The embryo`s crown-rump length measurement of 0.73 cm corresponds to a gestational age of 6 weeks 4 days with a sonographic due date of 12/28/2024. There is a normal-appearing yolk sac. There are no gross abnormalities noted within the embryo at this early state of development. The gestational sac has a normal appearance. There is a left-sided perigestational hemorrhage measuring 2.6 x 1.2 x 1.5 cm. The amount of fluid within the sac appears appropriate for gestational age. The cervix is closed. The myometrium appears normal. Corpus luteal cyst right ovary. Unremarkable left ovary. There are no suspicious fluid collections noted in the cul-de-sac. IMPRESSION: Single living intrauterine with sonographic gestational age 6 weeks 4 days and sonographic due date of 12/28/2024. Subchorionic hemorrhage measures 2.6 x 1.2 x 1.5 cm. Dictated by Barrington Joyce MD @ 05/08/2024 12:28:03 PM (Electronically Signed)
== END 2024-05-08 10:25 | disposition home or self-care (01) ==
LOC: US 10:25
PROVIDERS: Visit Provider Advanced Practice Midwife
DX: Z34.91 Encounter for supervision of normal pregnancy, unspecified, first trimester (principal); O20.9 Hemorrhage in early pregnancy, unspecified; Z3A.01 Less than 8 weeks gestation of pregnancy
CPT/HCPCS: 76817; 83021; 84439; 84443; 84481; 86592; 86703; 86704; 86706; 86762; 86787; 86803; 86850; 86900; 86901; 87086; 87340

== ENCOUNTER 2024-05-08 11:04 | Outpatient (CLI) | payer OTHER, SELFPAY | END 2024-05-08 11:05 | disposition home or self-care (01) | PROVIDERS: Visit Provider Advanced Practice Midwife | DX: O20.9 Hemorrhage in early pregnancy, unspecified (principal); Z3A.01 Less than 8 weeks gestation of pregnancy | CPT/HCPCS: 83020; 83021; 84439; 84443; 84481; 85660; 86592; 86703; 86704; 86706; 86762; 86787; 86803; 86850; 86900; 86901; 87086; 87340 ==

== ENCOUNTER 2024-08-14 10:00 | Outpatient (CLI) | payer OTHER, SELFPAY ==
--- NOTE | 2024-08-14 10:15 | CRLHL7_ITS ---
For Patients: As a result of the 21st Century Cures Act, medical imaging exams and procedure reports are released immediately into your electronic medical record. You may view this report before your referring provider. If you have questions, please contact your health care provider. OBSTETRICAL ULTRASOUND 08/14/2024 BRYANT by LMP: 12/28/2024. GA: 20 w, 4 d. INDICATION: screen. TECHNIQUE: Real time gan scale imaging of the fetus was performed. Evaluate anatomy. Transabdominal. position: Vertex. Cervix: Visualized. Technique: Transabdominal. Length of closed cervix: 3.8 cm. Placenta/cord: Posterior. Technique: Transabdominal. Placenta tip to internal OS: 4.6 cm. Umbilical Cord: 3-vessel cord. Placenta insertion: Central. Amniotic Fluid: 4.3 cm SDP (greater than/equal to: 2- less than 8 cm). SURVEY: Observed Structures. Calvarium/Spine: Cerebellum: 2.3 cm, 22 w 3 d. Cisterna Magna: 5.1 mm. Nuchal Fold: 4.6 mm. Lateral Ventricle: 7.4 mm. CSP: Yes. Midline Falx: Yes. Choroid Plexus: Yes. Spine: Yes. Abdomen: Stomach: Yes. Abd Cord Insertion: Yes. Urinary Bladder: Yes. Kidneys: Yes. Diaphragm: Yes. Face: Nose/lips: Yes. Orbital view: Yes. Profile: Yes. Limbs: Upper Extremities: Yes. Lower Extremities: Yes. Hands: Yes Feet: Yes Vascular: 4-Chamber Heart: Yes LVOT: Yes RVOT: Yes 3VV: Yes 3VTV: Yes BPD: 4.8 cm. 20 w, 3 d, 42 percent. HC: 17.9 cm. 20 w, 3 d, 33 percent. AC: 16.7 cm. 21 w, 5 d, 79 percent. FL: 3.5 cm. 20 w, 6 d, 53 percent. FL/AC ratio: 20.74 percent. HC/AC ratio: 1.08. heart rate: 134 bpm. age by this US: 21 w, 1 d. BRYANT by this US: 12/24/2024. EFW: 407 g. Weight: 0 lbs, 14 oz. Percentile by BRYANT: 79 percent. IMPRESSION: 1. Concordance of clinical and sonographic dating. 2. Normal anatomic survey. 3. Heterogeneous placenta with multiple placental lakes measuring up to 6.4 x 3.4 x 5.1 cm. Barrington Joyce M.D. Diagnostic Radiologist [email or web address] DAKOTA/martín DW/Dictated by: Barrington Joyce MD @ 08/15/2024 8:20:00 AM (Electronically Signed)
== END 2024-08-14 10:01 | disposition home or self-care (01) ==
LOC: US 10:00
PROVIDERS: Visit Provider Advanced Practice Midwife
DX: Z34.92 Encounter for supervision of normal pregnancy, unspecified, second trimester (principal); Z3A.20 20 weeks gestation of pregnancy
CPT/HCPCS: 76805; 84439; 84443; 84480; 84481

== ENCOUNTER 2024-10-07 09:59 | Outpatient (CLI) | payer OTHER, SELFPAY | END 2024-10-07 10:00 | disposition home or self-care (01) | LOC: NFLDREF 10-09 22:12 | PROVIDERS: Visit Provider Advanced Practice Midwife | DX: E06.3 Autoimmune thyroiditis (principal); Z86.39 Personal history of other endocrine, nutritional and metabolic disease | CPT/HCPCS: 84439; 84443; 84480; 84481; 86592 ==

== ENCOUNTER 2024-12-01 11:20 | Outpatient (CLI) | payer OTHER, SELFPAY | END 2024-12-01 11:21 | disposition home or self-care (01) | LOC: NFLDREF 12-03 16:00 | PROVIDERS: Visit Provider Advanced Practice Midwife | DX: Z34.93 Encounter for supervision of normal pregnancy, unspecified, third trimester (principal); Z3A.36 36 weeks gestation of pregnancy | CPT/HCPCS: 87081; 87653 ==

== ENCOUNTER 2025-01-05 10:40 | Outpatient (CLI) | payer OTHER, SELFPAY ==
--- NOTE | 2025-01-05 10:45 | CRLHL7_ITS ---
For Patients: As a result of the Cures Act, medical imaging exams and procedure reports are released immediately into your electronic medical record. You may view this report before your referring provider. If you have questions, please contact your health care provider. OB ULTRASOUND BRYANT by LMP or US: 12/28/2024. GA: 41 w, 1 d. Single. Comparison: 08/14/2024. INDICATION: Post-dates. TECHNIQUE: Real time grayscale imaging of the fetus was performed. Transabdominal. CERVIX: Not visualized. POSITIONING: Vertex. AMNIOTIC FLUID: 3.2 cm. SDP (N: greater than 2 x 1 cm) BIOPHYSICAL PROFILE: 2: Gross body movements 2: tone 2: Respiratory activity 2: Amniotic fluid SDP (N: greater than 2 x 1 cm) 8/8: Total score PLACENTA: Technique: Transabdominal. PLACENTA POSITION: Fundal. DOPPLER: heart rate: 132 bpm. IMPRESSION: Normal biophysical profile score 8/8. Barrington Joyce M.D. Diagnostic Radiologist [email or web address] DAKOTA/agustin velez/Dictated by: Barrington Joyce MD @ 01/05/2025 11:23:00 AM (Electronically Signed)
== END 2025-01-05 10:41 | disposition home or self-care (01) ==
LOC: US 10:41
PROVIDERS: Visit Provider Advanced Practice Midwife
DX: O48.0 Post-term pregnancy (principal); Z3A.41 41 weeks gestation of pregnancy
CPT/HCPCS: 76819; 87081; 87653

== ENCOUNTER 2025-01-11 07:29 | Inpatient (IN) | payer OTHER, SELFPAY ==
[2025-01-11] VITALS (13 sets, daily range): BP systolic 99–119; BP diastolic 52–75; PULSE 62–178; RESP 16–18; TEMP 36.6–36.9; O2SAT 80–99; BMI 24.9
--- NOTE | 2025-01-11 07:57 | W.PM.LDBA ---
Subjective History of Present Illness Date Seen: 01/11/25 Narrative: Patient is being admitted to Labor and Delivery for postdates IOL at 42 0/7 weeks. She is a 34 year old . Her full history and physical was dictated by Corrina Alves on 12/08/2024. Please see this for details. Specific Issues/Plans : Ko H&P completed 12/08/2024 by ABEL Carey # Tino's, hx of pp thyroiditis Increased levothyroxine to 75 mcg in early ; Return to Levothyroxine 50 mcg Has appointment with her Endocrine in Jun, encouraged her to discuss / plan for monitoring with him Labs at NOB, TSH, T3, T4 Endocrine visit 06/09/24 olegario TSH pt reports normal limits, returning to them in 4-6 weeks for repeat lab work ALEXIS signed 08/14/24 for endocrinology records, please forward results to to [facility] (ALEXIS signed) Thyroid labs drawn 08.14.24: normal sent results Repeat labs at 28 weeks: TSH 0.854, sent to [facility] Pt to clarify with Endocrine what labs and when they want , discussed we recommend one at 6 week pp # Thrombocytopenia at 28 wks. 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 32 at 42 0/7 weeks gestation?? complicated by:??Hashimotos, thrombocytopenia which was resolved at 34w Labor type: Induced, Not yet in labor?? Category 1 FHR pattern.??? Labor complicated by: IOL?? GBS negative? ?? PLAN:?? 1. Routine intrapartum cares as ordered. Induction options including cytotec, pitocin or AROM reviewed. Pt desired cytotec at this time. 2. Monitoring per policy, continuous?? 3. Planning unmedicated . Desires water . Consent signed. Hep C negative. Candidate for analgesia of choice.??? 4. Patient encouraged to reposition and ambulate to promote physiologic labor and .?? 5. Anticipate ? OB Exam Physical Exam Narrative: Vitals Reviewed Constitutional:? Alert and oriented x3 HEENT:? Normocephalic, atraumatic Neck:? Supple Lungs:? Clear to auscultation bilaterally Heart:? Regular rate and rhythm, no murmur, rub or gallop Abdomen:? Soft, nontender, and gravid. Vertex by Lasha's, confirmed with cervical exam. Extremities:? No edema or erythema Cervix: 6 cm/90%/0 station/vertex NST: 120 bpm/moderate variability/accelerations present/decelerations present/contractions irregular
[2025-01-11 09:09] LABS: Hematocrit 39.6 % (33.0-51.0); Hemoglobin* 13.4 gm/dL (12.0-16.0); Immature Granulocytes Abs Auto 0.18 K/uL (0.00-0.30); Immature Granulocytes Pct Auto 1.9 %; Lymphocytes Absolute Auto 2.12 K/uL (0.90-2.90); Mean Corpuscular HGB Conc 34 gm/dL (32-36); Mean Corpuscular Hemoglobin 31 pg (26-34); Mean Corpuscular Volume 90 fL (80-100); RDW Coefficient of Variation % 13.0 % (11.5-15.5); Red Blood Count 4.38 m/uL (4.00-5.20); White Blood Count* 9.70 K/uL (4.50-11.00)
[2025-01-11 09:10] LABS: Slide Review Reflex No
--- NOTE | 2025-01-11 11:55 | P.OBPN_ITS ---
Subjective Date Seen: 01/11/25 Narrative: Patient was admitted to Labor and Delivery for postdates IOL at 42 0/7 weeks. She is a 34 year old . Ko is here supporting her in labor. She has received 2 doses of oral cytotec and is not feeling much discomfort yet, but it is increasing. Specific Issues/Plans [id number]: Ko H&P completed 12/08/2024 by ABEL Carey # Tino's, hx of pp thyroiditis Increased levothyroxine to 75 mcg in early ; Return to Levothyroxine 50 mcg Has appointment with her Endocrine in Jun, encouraged her to discuss / plan for monitoring with him Labs at NOB, TSH, T3, T4 Endocrine visit 06/09/24 olegario TSH pt reports normal limits, returning to them in 4-6 weeks for repeat lab work ALEXIS signed 08/14/24 for endocrinology records, please forward results to to [facility] (ALEXIS signed) Thyroid labs drawn 08.14.24: normal sent results Repeat labs at 28 weeks: TSH 0.854, sent to [facility] Pt to clarify with Endocrine what labs and when they want , discussed we recommend one at 6 week pp # Thrombocytopenia at 28 wks. 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 Baseline change to 150s after the 2 min decels, late x 2 0960-3192. Enc position changes and side lying releases. Platelets 130-mild thrombocytopenia Hgb 13.4 Vital Signs: Last Vital Signs Temp 98.2 F 01/11/25 10:56 Pulse 75 01/11/25 10:52 Resp 16 01/11/25 10:56 BP 115/65 01/11/25 10:52 Pulse Ox 98 01/11/25 08:03 Plan Plan: ASSESSMENT:?? 32 at 42 0/7 weeks gestation?? complicated by:??Hashimotos, thrombocytopenia which was resolved at 34w Labor type: early induced labor Category 2 FHR pattern.??? Labor complicated by: mild thrombocytopenia, cat 2 tones? GBS negative? ?? PLAN:?? 1. Routine intrapartum cares as ordered. Continue expectant management at this time to see if her body is kicking in. I am hesitant to AROM due to intermittent decels. Laney agrees to placing a SL if another decel is noted in case IV fluids are indicated. 2. Monitoring per policy, continuous?? 3. Planning unmedicated . Desires water . Consent signed. Hep C negative. Candidate for analgesia of choice.??? 4. Patient encouraged to reposition and ambulate to promote physiologic labor and .?? 5. Anticipate ?
--- NOTE | 2025-01-11 16:15 | PM.OBPNL ---
Subjective Date Seen: 01/11/25 Narrative: Patient was admitted to Labor and Delivery for postdates IOL at 42 0/7 weeks. She is a 34 year old . Ko is here supporting her in labor. Labor has slowed down again. Laney would like to take a nap, then do the circuit again and agrees to start pitocin and titrate that up slowly. Specific Issues/Plans [id number]: Ko H&P completed 12/08/2024 by ABEL Carey # Tino's, hx of pp thyroiditis Increased levothyroxine to 75 mcg in early ; Return to Levothyroxine 50 mcg Has appointment with her Endocrine in Jun, encouraged her to discuss / plan for monitoring with him Labs at NOB, TSH, T3, T4 Endocrine visit 06/09/24 olegario TSH pt reports normal limits, returning to them in 4-6 weeks for repeat lab work ALEXIS signed 08/14/24 for endocrinology records, please forward results to to [facility] (ALEXIS signed) Thyroid labs drawn 08.14.24: normal sent results Repeat labs at 28 weeks: TSH 0.854, sent to [facility] Pt to clarify with Endocrine what labs and when they want , discussed we recommend one at 6 week pp # Thrombocytopenia at 28 wks. Plt 134, RESOLVED CBC at 34wks: 156 # Increased bleeding w/1st delivery, QBL was only 425 but received pit and cytotec Briefly discussed pitocin for AMTSL, desires expectant management # Placental lakes with largest being 6.4x3.4x5.1 Objective Exam: Objective: Constitutional: Alert and oriented x3, no distress, coping well Vital signs stable, see nurse documentation Abdomen: gravid, contractions palpate mild with contractions and soft between Cervix: deferred NST: 120 bpm/moderate variability/accelerations present/decelerations absent/contractions irregular Vital Signs: Last Vital Signs Temp 98.5 F 01/11/25 12:04 Pulse 75 01/11/25 15:48 Resp 16 01/11/25 12:04 BP 104/62 01/11/25 15:48 Pulse Ox 98 01/11/25 08:03 Plan Plan: ASSESSMENT:?? 34 at 42 0/7 weeks gestation?? complicated by:??Hashimotos, thrombocytopenia which was resolved at 34w Labor type: early induced labor Category 1 FHR pattern.??? Labor complicated by: mild thrombocytopenia, cat 2 tones?not currently GBS negative? ?? PLAN:?? 1. Routine intrapartum cares as ordered. Continue expectant management at this time while she naps. Pt will notify us when she is done and ready to start Pitocin and will do the circuit again. 2. Monitoring per policy, continuous?? 3. Planning unmedicated . Desires water . Consent signed. Hep C negative. Candidate for analgesia of choice.??? 4. Patient encouraged to reposition and ambulate to promote physiologic labor and .?? 5. Anticipate ?
[2025-01-11] MEDS: OXYTOCIN 30 unit/500 ML in NS 30 UNIT/500 ML BAG IVPB (18:04)
[2025-01-11] MEDS: LACTATED RINGERS 1000 ML 1,000 ML 50 ML IV (18:04)
--- NOTE | 2025-01-11 23:05 | PM.OBPNL ---
Subjective Date Seen: 01/11/25 Narrative: Patient was admitted to Labor and Delivery for postdates IOL at 42 0/7 weeks. She is a 34 year old . Ko is here supporting her in labor. Labor has just begun to show some signs it may be kicking in. She has noted a bout of diarrhea, increasing intensity, and some hormonal shaking starting. Pitocin is running up at 8 ml an hour. Specific Issues/Plans [id number]: Ko H&P completed 12/08/2024 by ABEL Carey # Tino's, hx of pp thyroiditis Increased levothyroxine to 75 mcg in early ; Return to Levothyroxine 50 mcg Has appointment with her Endocrine in Jun, encouraged her to discuss / plan for monitoring with him Labs at NOB, TSH, T3, T4 Endocrine visit 06/09/24 olegario TSH pt reports normal limits, returning to them in 4-6 weeks for repeat lab work ALEXIS signed 08/14/24 for endocrinology records, please forward results to to [facility] (ALEXIS signed) Thyroid labs drawn 08.14.24: normal sent results Repeat labs at 28 weeks: TSH 0.854, sent to [facility] Pt to clarify with Endocrine what labs and when they want , discussed we recommend one at 6 week pp # Thrombocytopenia at 28 wks. Plt 134, RESOLVED CBC at 34wks: 156 # Increased bleeding w/1st delivery, QBL was only 425 but received pit and cytotec Briefly discussed pitocin for AMTSL, desires expectant management # Placental lakes with largest being 6.4x3.4x5.1 Objective Exam: Objective: Constitutional: Alert and oriented x3, no distress, coping well Vital signs stable, see nurse documentation Abdomen: gravid, contractions palpate mild with contractions and soft between Cervix: 3 cm/60%/-2 station/vertex with palpable sutures NST: 125 bpm/moderate variability/accelerations present/sporadic variable decelerations/contractions q 2-3 min Vital Signs: Last Vital Signs Temp 98.3 F 01/11/25 21:00 Pulse 63 01/11/25 21:00 Resp 18 01/11/25 18:03 BP 99/52 L 01/11/25 21:00 Pulse Ox 99 01/11/25 21:00 Plan Plan: ASSESSMENT:?? 34 at 42 0/7 weeks gestation?? complicated by:??Hashimotos, thrombocytopenia which was resolved at 34w Labor type: early induced labor Category 2 FHR pattern.??? Labor complicated by: mild thrombocytopenia, cat 2 tones GBS negative? ?? PLAN:?? 1. Routine intrapartum cares as ordered. Attempted AROM, but success could not be confirmed. Continue pitocin titration per protocol. 2. Monitoring per policy, continuous?? 3. Planning unmedicated . Desires water . Consent signed. Hep C negative. Candidate for analgesia of choice.??? 4. Patient encouraged to reposition and ambulate to promote physiologic labor and .?? 5. Anticipate ?
[2025-01-12] VITALS (14 sets, daily range): BP systolic 99–131; BP diastolic 56–83; PULSE 67–86; RESP 16–20; TEMP 35.8–36.7; O2SAT 96–99
[2025-01-12] MEDS: CALCIUM CARBONATE 500 MG CHEW PO (02:06)
--- NOTE | 2025-01-12 03:13 | W.PM.OBVAGDE ---
OB Procedure Vag Delivery Mother Details Mother Details: The patient is a 34 year-old, 2, now P2002, admitted on 01/11/25 at 42 0/7 weeks gestation. Admission Date: 01/11/25 Additional Details Amniotic Membrane Status: AROM Amniotic Membrane Rupture Date: 01/11/25 Amniotic Membrane Rupture Time: 23:01 Amniotic Membrane Fluid Description: Clear (minimal amount) Analgesia/Anesthesia Type: None Waterbirth: Yes Pitcoin: Yes (given for IOL, declined for AMTSL) Intrapartal Events: Labor Induction (oral cytotec x 2, pit, arom) Induction Method: per misoprostol protocol, per pitocin protocol and AROM Labor Onset: 00:01 Complete: 02:41 Pushin:41 Heart: heart tones during second stage were unable to be captured due to rapid progress. Late in transition, some decels noted, but resolved prior to her becoming complete with moderate variability and accelerations returning. Delivery Details Delivery Date: 01/12/25 Delivery Time: 02:49 Route of delivery: Infant Gender: Male Infant Viability: Alive; Heart Rate Present Position at Delivery: OA Delivery Details: Patient was admitted for IOL for post term and progressed after AROM. AROM noted at 2301 with minimal to no fluid return. Cervix with thick anterior ridge at 8 cm. Counter pressure applied to help it move up under the pubic bone with patient permission. She progressed very rapidly to complete with that. Patient was complete at 0241 and pushing at 0241. of a viable male at 0249 in kneeling in the tub. Vertex delivered OA. No nuchal cord or shoulder dystocia. Body delivered easily and without incident. passed to mothers abdomen with a vigorous cry to shortly follow. Cord was clamped and cut at approx 5 minutes with vaginal gush of blood noted. APGARS were 8 at one minute and 9 at five minutes respectively. Intact placenta with a 3 vessel cord delivered spontaneously at 0300. Fundus firm. 1st degree midline at introitus vaginal laceration identified. It was hemostatic and not repaired. EBL 150 cc. Mother and baby stable; mother plans to breastfeed. Infant weight pending.? 1 Minute Interval Total Score: 8 5 Minute Interval Total Score: 9 Additional Details Shoulder Dystocia: No Placental Delivery Description: Spontaneous Procedure Done: Global Blood Loss: 150 Laceration: Vaginal - 1st Degree (no repair, hemostatic) Episiotomy Description: None Blood Loss Measurement Type: EBL Bakri Used: No Sponge/Need Count Correct: Yes Cord Vessel Description: 3 Vessels Event Summary Status: Mother and were stable after delivery. Disposition: floor
[2025-01-12] MEDS: DOCUSATE SODIUM 100 MG CAPSULE PO ×2 (10:15→21:06)
[2025-01-13 01:39] VITALS: BP 94/53; PULSE 56; RESP 16; TEMP 36.8; O2SAT 96
--- NOTE | 2025-01-13 07:50 | P.DS_ITS ---
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 appropriate for stage of healing Extremities: full sensation, no edema Cardiovascular: regular rate and rhythm Respiratory: regular breathing effort, lungs clear to auscultation Psych: calm and cooperative, alert and oriented Const: Vital Signs, click to edit/add: Vital Signs - 24 hr 01/12/25 10:13 01/12/25 14:23 01/12/25 20:49 Temperature 98.0 F 97.6 F Pulse Rate [Pulse Oximeter] 86 74 76 Respiratory Rate 20 16 16 Blood Pressure [Ri ght Arm] 114/78 99/57 L 114/74 Pulse Oximetry 99 96 97 Oxygen Delivery Me thod Room Air Room Air Room Air 01/13/25 01:39 Temperature 98.2 F Pulse Rate [Pulse Oximeter] 56 L Respiratory Rate 16 Blood Pressure [Ri ght Arm] 94/53 L Pulse Oximetry 96 Oxygen Delivery Me thod Room Air Documenting provider has reviewed patient's vital signs: yes OB - DS: Summary Hospital Course Hospital Course: The patient is a 34 year old G 2 P 2 at 42 weeks 1 day gestation that was admitted to the Center on 01/11/25 for induction of labor for postdates. She had an uncomplicated vaginal delivery. She delivered a viable male infant. She is and requesting assistance. Difficulty getting deep latch and keeping strong suck. Left nipple is sore and she said had broken down and blistered. Intact at this time. Laney is using nipple ointment and silver caps for healing. RN to assist with nursing. Laney is interested in going home today which we plan but did offer if she would like to stay another night for more support we can do that. She does have an appointment with Saturday. the patient has done well. Minimal vaginal bleeding and no blood clots. Plan to decrease Levothyroxine to 50mcg daily to prepregnancy dose. She did develop thyroiditis after first baby. Mother at bedside holding baby. Intend do natural family planning for child spacing. ILIR Weller I, Kiya Adams, OPERATIONS/DISPATCH, CNM, was present for visit and have reviewed and agree with documentation by the Certified Nurse Midwifery Student.? Peripartum Data delivery method: Vaginal Laceration description: Vaginal - 1st Degree (no repair) complications: none [place] Gender: Male Discharge Plan: Home Status at Discharge Functional status at discharge: independent ambulation Overall status at discharge: patient is progressing back to baseline Time Spent with Patient Time attestation: Total time spent providing and/or coordinating discharge services: Time spent: Less than 30 minutes Discharge Plan Discharge Disposition: Home, Self-Care Date of Admission: 01/11/25 07:29 Attending Provider on Discharge: Kiya Adams Primary Care Provider: Leah Pisano Condition: Stable Anticipated Discharge Date/Time: 01/13/25 17:00 Discharge Medications: New docusate sodium 100 mg Capsule 100 mg PO DAILY Qty: 100 0RF Rx Instructions: Take 1-2 tablets daily as needed for constipation. levothyroxine 50 mcg capsule 50 mcg PO DAILY Qty: 90 3RF Continued omega-3 fatty acids 1,000 mg capsule 1,000 mg PO QDAY magnesium 250 mg tablet 250 mg PO QDAY Digestive Advantage Advanced 10 billion cell capsule 1 cell PO DAILY Multi-DHA(with vit K) 27 mg iron-800 mcg-260 mg capsule 1 cap PO DAILY (DME) breast pump Device See Rx Instructions .Route Qty: 1 0RF Rx Instructions: As directed metoclopramide HCl [Reglan] 10 mg tablet 10 mg PO Q6H PRN (Reason: headache) Qty: 30 2RF Discontinued [place] skull cap 1 mL liquid 1 ml PO .Daily' levothyroxine 75 mcg capsule 75 mcg PO QDAY Discharge Orders: Discharge Order (Routine); Ordered 01/13/25 Ordered By: Kiya Adams Patient Education: OB Vaginal/Breast Feeding Additional Instructions: Discharge instructions were reviewed with the patient including signs and symptoms of infection and home going medications Nothing vaginally for 6 weeks: no tampons or intercourse Do not drive while taking narcotic pain medication(s) Off Work or School for 8 weeks Symptoms to report to doctor: * Bleeding that saturates more than one pad per hour * Passing clots larger than the size of a golf ball * Pain not relieved by prescribed medication * Fever above 100.4 degrees Fahrenheit * A foul vaginal odor * Difficulty in emotions, mood, and functions * Thoughts of hurting yourself and/or * Painful, reddened area in your breast * Any drainage, redness, or tenderness in your IV/epidural site * Severe headache that doesn't improve after taking medications * Changes in vision, including temporary loss of vision, blurred vision, and/or light sensitivity * Upper abdominal pain (usually under ribs on the right side) * Decrease in urination or painful, frequent urinating * Chest pain * Shortness of breath * Tenderness or pain with redness and/swelling in the calf(s) of your leg 2-week visit: discuss feeding concerns, review control options and screen for anxiety/depression. 6-week visit for an annual exam. consultation services are available to all mothers and babies for the first year after delivery.? To make an appointment, please call [phone]. Activity Level: Activity as Tolerated Discharge Diet: Regular Follow Up Appointments: [facility] [Provider Group] Forms: Patient Belongings, MyHealth Info Instructions
[2025-01-13 08:09] VITALS: BP 108/73; PULSE 77; RESP 16; TEMP 36.6; O2SAT 97
[2025-01-13] MEDS: DOCUSATE SODIUM 100 MG CAPSULE PO (09:51)
[2025-01-13 14:23] VITALS: BP 108/67; PULSE 70; RESP 16; TEMP 36.7; O2SAT 97
== END 2025-01-13 16:15 | disposition home or self-care (01) | DRG 806 ==
PROVIDERS: Admitting Provider Midwife; Visit Provider Midwife
DX: O48.0 Post-term pregnancy (principal); O99.12 Other diseases of the blood and blood-forming organs and certain disorders involving the immune mechanism complicating childbirth; O99.284 Endocrine, nutritional and metabolic diseases complicating childbirth; E06.3 Autoimmune thyroiditis; D69.6 Thrombocytopenia, unspecified; O70.0 First degree perineal laceration during delivery; Z37.0 Single live birth; Z3A.42 42 weeks gestation of pregnancy
CPT/HCPCS: 36415; 59200; 85025; 86592; A9270; J7120

== ENCOUNTER 2025-01-18 11:00 | Outpatient (CLI) | payer OTHER, SELFPAY ==
--- NOTE | 2025-01-18 16:11 | W.PM.LAC.MC ---
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) NVD (normal vaginal delivery) ?O80 - Encounter for full-term uncomplicated delivery (ICD-10) Second degree laceration of perineum, delivered, current hospitalization ?O70.1 - Second degree perineal laceration during delivery (ICD-10) thyroiditis ?O90.5 - thyroiditis (ICD-10) 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, 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) ?K63.89 - Other specified diseases of intestine (ICD-10) Delivery Information Delivery type: Vaginal Gestational Age: 42+1 Gestational Weight For Age: AGA Weight: 3.67 kg Discharge Weight: 3.595 kg Percentage weight loss: 2.1 Baby's Information Baby's Age at Visit: 6 days Baby's Provider or Clinic: NG+C Jaundice: No Past Experience Past Experience: Yes Current Frequency of Day Feedings: every 1.5-2.5 hrs Frequency of Night Feedings: same Both Breasts: Yes (offered but not always taking both sides) Suck: strong Latch: deep, mostly comfortable Length of Time: 5-10 minutes Goals: at least 1 year Pumping Pumping: Yes (hand pump, 1-1.5oz in 5 min) Supplementing EBM Supplement: No Formula Supplement: No Baby Elimination Number of Wet Diapers a Day: 6 or more/day Number of BM a Day: 6 or more/day; yellow and seedy in color Breast/Nipple Condition Breast Information: Breasts are symmetrical with rounded lower quadrants, intramammary distance is less than 1.5 inches. No erythema. Nipples are supple, everted prior to feeding. Breast Shape: Round and Firm Engorgement: No Maternal Nipple Condition - Left: Common Nipple Maternal Nipple Condition - Right: Common Nipple Sore Nipples: Yes Interventions for Sore Nipples: Lansinoh/Nipple Cream and Other (silverettes) Baby Assessment Skin: Normal Tongue/frenulum: Restricted mid-range Palate: Average Lips: Relaxed and Symmetrical Jaw Alignment: Symmetrical Mucosa: [place], moist Onsite Observation Pre-Feed weight: 4.038 kg Post-Feed weight: 4.1 kg Milk Transferred (mL): 62 Position: Cross cradle Attachment/latch-on achieved: Easily Suck pattern: Suck burst and normal rest Swallow: Audible, consistent and Gulping Behavior following feed: Relaxed, sleepy Pre-Nursing Right Nipple: Within Normal Limits Post-Nursing Right Nipple: Crusting/Scabs (slight fissure at base of nipple at the 10 o'clock position) Assessments/Interventions Assessments/Interventions: Yakelin latched easily, not painful per mom. latched more easily here than he usually does at home, mom not sure why. Yakelin easily moved into a rhythmic suckling pattern. He nursed for 8 minutes and came off the breast; had transferred 62 ml; declined the other side-which makes sense given the amount of milk transferred. He has gained 443 gm in 5 days so not worried about his only taking one breast/feeding right no Older sib had a tongue tie that was revised at 5 months of age; parents asking about that for this baby. No anterior tongue tie appreciated. Slight posterior tongue tie noted and discussed with parents. TABBY score of 6, ATLFF score of 11 Discussed referral to Pediatric dentist if nipple pain continues beyond another week. Discussed how posterior tongue ties can show up more when milk supply is more regulated and baby now needs to work harder to retrieve milk. Questions answered. Education provided: Early feeding cues to maximize timing of latching, Asymmetric latch technique for wide/deep latch to increase milk, Transfer for baby and increase comfort for mom, Supply/demand nature of milk supply, Need for frequent stimulation/milk removal, Sore nipple treatment options (gel pads given to try for fissure on RIGHT breast/nipple), Pumping for milk management, Milk collection, storage and Other Follow-Up Suggested follow up: Appointment as needed Time Spent Time spent with patient (min): 90 Meds Home Medications and Allergies Home Medications ?Medication ?Instructions ?Recorded ?Confirmed ?Type PNV no.151-iron 27 mg-folic 800 1 cap PO DAILY 01/09/23 01/11/25 History mcg-omega3 260 mm-tjx-zat-fish capsule ( Multi-DHA (with vitamin K)) breast pump #1 ea 01/09/23 01/11/25 Rx L.acidoph,paracasei,B.animalis 10 1 cell PO DAILY 03/13/23 01/11/25 History billion cell capsule (Digestive Advantage Advanced Probiotic) magnesium 250 mg tablet 250 mg PO QDAY 03/13/23 01/11/25 History omega-3 fatty acids 1,000 mg 1,000 mg PO QDAY 03/13/23 01/11/25 History capsule metoclopramide HCl 10 mg tablet 10 mg PO Q6H PRN headache #30 tabs 07/15/24 01/11/25 Rx (Reglan) docusate sodium 100 mg capsule 100 - 200 mg (1 - 2 x 100 mg) PO 01/13/25 Rx DAILY #100 caps levothyroxine 50 mcg capsule 50 mcg PO DAILY #90 caps 01/13/25 Rx Allergies Allergy/AdvReac Type Severity Reaction Status Date / Time No Known Drug Allergies Allergy Verified 01/08/25 11:08
== END 2025-01-18 11:01 | disposition home or self-care (01) ==
PROVIDERS: Visit Provider Obstetrics & Gynecology
DX: Z39.1 Encounter for care and examination of lactating mother (principal)
CPT/HCPCS: G0463

== ENCOUNTER 2025-01-28 16:02 | Outpatient (CLI) | payer OTHER, SELFPAY | END 2025-01-28 16:03 | disposition home or self-care (01) | PROVIDERS: Visit Provider Advanced Practice Midwife | DX: E06.3 Autoimmune thyroiditis (principal) | CPT/HCPCS: 83520; 84439; 84443; 84481 ==

== ENCOUNTER 2025-02-22 10:23 | Outpatient (CLI) | payer OTHER, SELFPAY | END 2025-02-22 10:24 | disposition home or self-care (01) | PROVIDERS: Visit Provider Advanced Practice Midwife | DX: E06.3 Autoimmune thyroiditis (principal); Z86.39 Personal history of other endocrine, nutritional and metabolic disease | CPT/HCPCS: 84439; 84443; 84481 ==